=== PATIENT | female | born 1970 | race Caucasian/White ===

== ENCOUNTER 2018-05-27 11:59 | Inpatient (IN) ==
[2018-05-27 13:02] LABS: Basophils % 0.7 % (0.0-0.8); Eosinophils # 0.1 10*3/uL (0.0-0.87); Eosinophils % 1.1 % (0.00-10.9); Hematocrit 22.2 VOL% (35.7-47.0); Immature Granulocytes % 0.5 %; Immature Granulocytes Absolute 0.02 #; Lymphocytes # 1.2 10*3/uL (1.4-4.0); Lymphocytes % 28.1 % (21.3-54.2); Mean Corpuscular HGB Conc 27.9 GM/DL (32-36); Mean Corpuscular Hemoglobin 22 PG (27-34); Mean Corpuscular Volume 79.3 FL (87-102); Mean Platelet Volume 9.6 FL (9.6-12.0); Monocytes # 0.4 10*3/uL (0.11-0.8); Monocytes % 8.4 % (1.7-12.7); NRBC # 0.02 10*3/uL; Neutrophils # 2.7 10*3/uL (1.4-7.4); Neutrophils % 61.2 % (38.7-73.9); Platelet Count 517 T/CUMM (130-400); Red Cell Distribution Width 20.1 % (9.3-17.3); White Blood Count 4.4 T/CUMM (4-12)
[2018-05-27 13:11] LABS: Hemoglobin 6.2 GM/DL (12.0-16.0)
[2018-05-27] MEDS ORDERED: MORPHINE 4 MG/1 ML VIAL ONE ×2 (13:14→15:36)
[2018-05-27] MEDS ORDERED: ONDANSETRON 4 MG/2 ML VIAL ONE ×2 (13:15→15:36)
[2018-05-27] MEDS ORDERED: ONDANSETRON 4 MG/2 ML VIAL IM STA (13:18)
[2018-05-27] MEDS ORDERED: MORPHINE 4 MG/1 ML VIAL IV STA ×2 (13:18→15:33)
[2018-05-27] MEDS ORDERED: PROMETHAZINE INJ 12.5 MG in SODIUM CHLORIDE 0.9% 50 ML IV STA (13:18)
[2018-05-27] MEDS ORDERED: SODIUM CHLORIDE 0.9% 1,000 ML IV STA ×2 (13:19→14:49)
[2018-05-27] MEDS ORDERED: ONDANSETRON 4 MG/2 ML VIAL IV STA ×2 (13:21→15:35)
[2018-05-27 13:24] LABS: Albumin 4.2 G/DL (3.4-5.0); Bilirubin,Total 0.7 MG/DL (0.2-1.0); Calcium 8.4 MG/DL (8.5-10.1); Osmolality,Calculated 280.3 MOS/KG (273-304); Total Protein 7.6 G/DL (6.4-8.3)
[2018-05-27] MEDS ORDERED: PROMETHAZINE 25 MG/1 ML VIAL ONE (13:24)
[2018-05-27 14:14] LABS: Barbiturates Screen,Urine Negative (Negative); Benzodiazepines Screen,Urine Negative (Negative); Cannabinoid Screen,Urine Negative (Negative); Opiate Screen,Urine Positive (Negative); Phencyclidine Screen,Urine Negative (Negative)
[2018-05-27] MEDS ORDERED: ONDANSETRON 4 MG/2 ML VIAL IV ONE (14:49)
[2018-05-27 14:50] LABS: Apearance,Urine CLEAR (Clear); Bilirubin,Urine Negative (Negative); Blood, Urine Negative (Negative); Glucose,Urine (UA) Negative (Negative); Hyaline Casts,Urine 3 /LPF (0-3); Ketones,Urine 20 mg/dL (Negative); Mucus,Urine Occasional /LPF (Occasional); Nitrite,Urine Negative (Negative); Protein,Urine Negative; Urine Color Yellow (Yellow); Urine Specific Gravity 1.025 (1.001-1.035); Urine Urobilinogen < 2.0 EU/DL (0.2-1.0); WBC,Urine 1 /HPF (0-6)
[2018-05-27] MEDS ORDERED: SODIUM CHLORIDE 0.9% 1,000 ML IV PRN (15:42)
[2018-05-27] MEDS ORDERED: PROMETHAZINE 25 MG SUPP RECTAL PRN (15:47)
[2018-05-27 16:12] LABS: % Iron Saturation 2.9 % (18-50); Ferritin 6.3 ng/ml (8-252)
[2018-05-27] MEDS: SODIUM CHLORIDE 0.9% 1,000 ML IV SCH (17:15)
[2018-05-27 18:14] LABS: HIV Antigen/Antibody Result Nonreactive (Nonreactive); Hepatitis A Ab IgM Result Negative (Negative); Hepatitis B Core IgM Quant < 0.05 Index; Hepatitis B Core IgM Result Negative (Negative); Hepatitis B Surface Ag Quant 0.28 Index; Hepatitis B Surface Ag Result Negative (Negative); Hepatitis C Virus Ab Quant 0.12 Index; Hepatitis C Virus Ab Result Negative (Negative)
[2018-05-27] MEDS: PANTOPRAZOLE 40 MG VIAL IV SCH (19:53)
[2018-05-27] MEDS: ONDANSETRON 4 MG/2 ML VIAL IV PRN (21:26)
[2018-05-27] MEDS: MORPHINE 4 MG/1 ML VIAL IV PRN (21:26)
[2018-05-27] MEDS: traZODone 50 MG TABLET PO PRN (21:57)
[2018-05-28] MEDS: MORPHINE 4 MG/1 ML VIAL IV PRN ×3 (03:36→20:18)
[2018-05-28] MEDS: ONDANSETRON 4 MG/2 ML VIAL IV PRN ×2 (03:37→09:22)
[2018-05-28 06:01] LABS: Basophils % 0.9 % (0.0-0.8); Eosinophils # 0.1 10*3/uL (0.0-0.87); Eosinophils % 3.2 % (0.00-10.9); Hematocrit 24.9 VOL% (35.7-47.0); Immature Granulocytes % 0.3 %; Immature Granulocytes Absolute 0.01 #; Lymphocytes # 1.4 10*3/uL (1.4-4.0); Lymphocytes % 41.4 % (21.3-54.2); Mean Corpuscular HGB Conc 30.5 GM/DL (32-36); Mean Corpuscular Hemoglobin 25 PG (27-34); Mean Platelet Volume 9.8 FL (9.6-12.0); Monocytes # 0.4 10*3/uL (0.11-0.8); Monocytes % 12.1 % (1.7-12.7); NRBC # 0.02 10*3/uL; Neutrophils # 1.5 10*3/uL (1.4-7.4); Neutrophils % 42.1 % (38.7-73.9); Platelet Count 318 T/CUMM (130-400); Red Cell Distribution Width 19.1 % (9.3-17.3); White Blood Count 3.5 T/CUMM (4-12)
[2018-05-28 06:12] LABS: Hemoglobin 7.6 GM/DL (12.0-16.0)
[2018-05-28 06:39] LABS: Albumin 3.3 G/DL (3.4-5.0); Bilirubin,Total 0.7 MG/DL (0.2-1.0); Calcium 8.1 MG/DL (8.5-10.1); Osmolality,Calculated 282.8 MOS/KG (273-304); Potassium 3.9 MMOL/L (3.5-5.1); Risk Ratio 2.94; Thyroid Stimulating Hormone 1.28 uIU/ml (0.358-3.74); VLDL CHOLESTEROL 21.8 MG/DL
[2018-05-28] MEDS: PANTOPRAZOLE 40 MG VIAL IV SCH (09:19)
[2018-05-28] MEDS ORDERED: SODIUM CHLORIDE 0.9% 1,000 ML IV PRN ×2 (10:59→18:36)
[2018-05-28 13:16] LABS: Basophils % 1.2 % (0.0-0.8); Eosinophils # 0.1 10*3/uL (0.0-0.87); Eosinophils % 3.4 % (0.00-10.9); Hematocrit 25.7 VOL% (35.7-47.0); Hemoglobin 7.5 GM/DL (12.0-16.0); Immature Granulocytes % 0.3 %; Immature Granulocytes Absolute 0.01 #; Lymphocytes # 1.3 10*3/uL (1.4-4.0); Lymphocytes % 40.7 % (21.3-54.2); Mean Corpuscular HGB Conc 29.2 GM/DL (32-36); Mean Corpuscular Hemoglobin 25 PG (27-34); Mean Platelet Volume 9.5 FL (9.6-12.0); Monocytes # 0.4 10*3/uL (0.11-0.8); Monocytes % 11.3 % (1.7-12.7); Neutrophils # 1.4 10*3/uL (1.4-7.4); Neutrophils % 43.1 % (38.7-73.9); Platelet Count 302 T/CUMM (130-400); Red Blood Count 2.99 MC/CUMM (3.8-5.5); Red Cell Distribution Width 18.7 % (9.3-17.3); White Blood Count 3.3 T/CUMM (4-12)
[2018-05-28] MEDS: PROMETHAZINE 25 MG/1 ML VIAL IM PRN ×2 (14:38→21:41)
[2018-05-28] MEDS ORDERED: PROPOFOL 200 MG/20 ML VIAL IV ONE (15:20)
[2018-05-28] MEDS ORDERED: LIDOCAINE 2% 5 ML VIAL ONE (15:20)
[2018-05-28] MEDS ORDERED: ONDANSETRON 4 MG/2 ML VIAL ONE (15:20)
[2018-05-28] MEDS: PARoxetine 10 MG TABLET PO SCH ×2 (18:04→20:20)
[2018-05-28] MEDS: HydrOXYzine PAMOATE 25 MG CAPSULE PO SCH ×2 (18:04→20:20)
[2018-05-28] MEDS ORDERED: ACETAMINOPHEN 325 MG TABLET PO PRN (18:25)
[2018-05-28] MEDS: SODIUM CHLORIDE 0.9% 1,000 ML IV SCH (23:30)
[2018-05-29 01:03] LABS: Hematocrit 31.5 VOL% (35.7-47.0)
[2018-05-29 01:05] LABS: Hemoglobin 10.1 GM/DL (12.0-16.0)
[2018-05-29 06:12] LABS: Basophils # 0.1 10*3/uL (0.0-0.2); Basophils % 1.4 % (0.0-0.8); Eosinophils # 0.2 10*3/uL (0.0-0.87); Hematocrit 33.8 VOL% (35.7-47.0); Hemoglobin 10.3 GM/DL (12.0-16.0); Immature Granulocytes % 0.3 %; Immature Granulocytes Absolute 0.01 #; Lymphocytes % 28.3 % (21.3-54.2); Mean Corpuscular HGB Conc 30.5 GM/DL (32-36); Mean Corpuscular Hemoglobin 26 PG (27-34); Mean Platelet Volume 9.9 FL (9.6-12.0); Monocytes # 0.4 10*3/uL (0.11-0.8); Monocytes % 11.1 % (1.7-12.7); Neutrophils % 53.9 % (38.7-73.9); Platelet Count 267 T/CUMM (130-400); Red Blood Count 3.93 MC/CUMM (3.8-5.5); Red Cell Distribution Width 17.3 % (9.3-17.3); White Blood Count 3.6 T/CUMM (4-12)
[2018-05-29 06:40] LABS: Calcium 8.2 MG/DL (8.5-10.1); Osmolality,Calculated 286.6 MOS/KG (273-304); Potassium 3.9 MMOL/L (3.5-5.1)
[2018-05-29 06:53] LABS: Bilirubin,Total 0.6 MG/DL (0.2-1.0); Calcium 8.4 MG/DL (8.5-10.1); Osmolality,Calculated 286.6 MOS/KG (273-304); Potassium 3.9 MMOL/L (3.5-5.1); Total Protein 6.1 G/DL (6.4-8.3)
[2018-05-29] MEDS: PANTOPRAZOLE 40 MG VIAL IV SCH (08:10)
[2018-05-29] MEDS: HydrOXYzine PAMOATE 25 MG CAPSULE PO SCH ×3 (08:10→20:12)
[2018-05-29] MEDS: PARoxetine 10 MG TABLET PO SCH (08:10)
[2018-05-29] MEDS: PROMETHAZINE 25 MG/1 ML VIAL IM PRN (08:21)
[2018-05-29] MEDS: MORPHINE 4 MG/1 ML VIAL IV PRN ×2 (08:23→20:12)
[2018-05-29] MEDS: SODIUM CHLORIDE 0.9% 1,000 ML IV SCH ×2 (11:41→19:41)
[2018-05-29] MEDS: FERROUS SULFATE 325 MG TABLET PO SCH (11:43)
[2018-05-29] MEDS: traZODone 50 MG TABLET PO PRN (22:00)
[2018-05-30] MEDS: SODIUM CHLORIDE 0.9% 1,000 ML IV SCH ×2 (00:42→00:44)
[2018-05-30 06:07] LABS: Basophils # 0.1 10*3/uL (0.0-0.2); Basophils % 1.4 % (0.0-0.8); Eosinophils # 0.2 10*3/uL (0.0-0.87); Eosinophils % 6.6 % (0.00-10.9); Hematocrit 31.7 VOL% (35.7-47.0); Hemoglobin 9.7 GM/DL (12.0-16.0); Immature Granulocytes % 0.6 %; Immature Granulocytes Absolute 0.02 #; Lymphocytes # 1.5 10*3/uL (1.4-4.0); Mean Corpuscular HGB Conc 30.6 GM/DL (32-36); Mean Corpuscular Hemoglobin 26 PG (27-34); Mean Corpuscular Volume 83.9 FL (87-102); Mean Platelet Volume 9.6 FL (9.6-12.0); Monocytes # 0.5 10*3/uL (0.11-0.8); Monocytes % 12.9 % (1.7-12.7); Neutrophils # 1.3 10*3/uL (1.4-7.4); Neutrophils % 36.5 % (38.7-73.9); Platelet Count 210 T/CUMM (130-400); Red Blood Count 3.78 MC/CUMM (3.8-5.5); Red Cell Distribution Width 17.6 % (9.3-17.3); White Blood Count 3.5 T/CUMM (4-12)
[2018-05-30 06:30] LABS: Eosinophils 6 % (0-10); Hypochromasia 1+; Lymphocytes 37 % (20-55); Segmented Neutrophils 48 % (50-85); Total Cells Counted 100
[2018-05-30 06:31] LABS: Atypical Lymphocytes Few; Microcytosis 1+; Platelet Estimate Normal
[2018-05-30] MEDS: PARoxetine 10 MG TABLET PO SCH (08:42)
[2018-05-30] MEDS: PROMETHAZINE 25 MG/1 ML VIAL IM PRN (08:42)
[2018-05-30] MEDS: FERROUS SULFATE 325 MG TABLET PO SCH (08:42)
[2018-05-30] MEDS: PANTOPRAZOLE 40 MG VIAL IV SCH (08:43)
[2018-05-30] MEDS: HydrOXYzine PAMOATE 25 MG CAPSULE PO SCH (08:50)
[2018-05-30 11:52] VITALS: BP 127/77
== END 2018-05-30 13:25 | disposition home or self-care (01) | DRG 812 ==
LOC: N.ED 11:59 → N.5E 15:45
PROVIDERS: ADMIT Internal Medicine; ATTEND Internal Medicine

== ENCOUNTER 2018-06-09 05:49 | Observation (INO) ==
[2018-06-09] MEDS ORDERED: SODIUM CHLORIDE 0.9% 500 ML IV STA (06:31)
[2018-06-09] MEDS ORDERED: ONDANSETRON 4 MG/2 ML VIAL IV STA ×2 (06:31→08:41)
[2018-06-09 06:37] LABS: Basophils # 0.1 10*3/uL (0.0-0.2); Basophils % 1.5 % (0.0-0.8); Eosinophils # 0.3 10*3/uL (0.0-0.87); Eosinophils % 6.9 % (0.00-10.9); Hematocrit 32.5 VOL% (35.7-47.0); Hemoglobin 9.8 GM/DL (12.0-16.0); Immature Granulocytes % 0.6 %; Immature Granulocytes Absolute 0.03 #; Lymphocytes # 1.6 10*3/uL (1.4-4.0); Lymphocytes % 34.3 % (21.3-54.2); Mean Corpuscular HGB Conc 30.2 GM/DL (32-36); Mean Corpuscular Hemoglobin 27 PG (27-34); Mean Corpuscular Volume 88.8 FL (87-102); Mean Platelet Volume 9.6 FL (9.6-12.0); Monocytes # 0.5 10*3/uL (0.11-0.8); Monocytes % 9.9 % (1.7-12.7); Neutrophils # 2.2 10*3/uL (1.4-7.4); Neutrophils % 46.8 % (38.7-73.9); Platelet Count 455 T/CUMM (130-400); Red Blood Count 3.66 MC/CUMM (3.8-5.5); Red Cell Distribution Width 21.3 % (9.3-17.3); White Blood Count 4.7 T/CUMM (4-12)
[2018-06-09 07:04] LABS: Albumin 3.3 G/DL (3.4-5.0); Bilirubin,Total 0.8 MG/DL (0.2-1.0); Calcium 8.5 MG/DL (8.5-10.1); Osmolality,Calculated 282.8 MOS/KG (273-304); Potassium 3.8 MMOL/L (3.5-5.1); Total Protein 6.4 G/DL (6.4-8.3)
[2018-06-09 07:07] LABS: Apearance,Urine CLEAR (Clear); Bilirubin,Urine Negative (Negative); Blood, Urine Negative (Negative); Glucose,Urine (UA) Negative (Negative); Hyaline Casts,Urine 1 /LPF (0-3); Ketones,Urine Negative (Negative); Mucus,Urine Occasional /LPF (Occasional); Nitrite,Urine Negative (Negative); Protein,Urine Negative; Squamous Epithelial Cell,Urine Occasional /HPF (0-10); Urine Color Yellow (Yellow); Urine Specific Gravity 1.012 (1.001-1.035); Urine Urobilinogen < 2.0 EU/DL (0.2-1.0); WBC,Urine 1 /HPF (0-6)
[2018-06-09] MEDS ORDERED: HYDROmorphone 2 MG/1 ML VIAL IV STA (08:15)
[2018-06-09] MEDS ORDERED: PANTOPRAZOLE 40 MG TABLET PO SCH (09:30)
[2018-06-09] MEDS: SODIUM CHLORIDE 0.9% 1,000 ML IV SCH (09:49)
[2018-06-09] MEDS: ACETAMINOPHEN 325 MG TABLET PO PRN ×2 (13:43→20:57)
[2018-06-09] MEDS: ONDANSETRON 4 MG/2 ML VIAL IV PRN ×2 (14:35→18:41)
[2018-06-09 18:18] LABS: Hematocrit 29.4 VOL% (35.7-47.0)
[2018-06-09] MEDS: DICYCLOMINE 20 MG TABLET PO PRN (18:46)
[2018-06-09] MEDS: PARoxetine 20 MG TABLET PO SCH (20:57)
[2018-06-09] MEDS: HydrOXYzine PAMOATE 25 MG CAPSULE PO PRN (21:01)
[2018-06-09] MEDS: PANTOPRAZOLE 40 MG VIAL IV SCH (22:03)
[2018-06-10] MEDS: SODIUM CHLORIDE 0.9% 1,000 ML IV SCH ×2 (00:30→14:09)
[2018-06-10] MEDS: ONDANSETRON 4 MG/2 ML VIAL IV PRN ×4 (01:13→21:04)
[2018-06-10] MEDS: DICYCLOMINE 20 MG TABLET PO PRN ×4 (01:50→21:29)
[2018-06-10 06:16] LABS: Basophils # 0.1 10*3/uL (0.0-0.2); Basophils % 1.6 % (0.0-0.8); Eosinophils # 0.3 10*3/uL (0.0-0.87); Hematocrit 29.8 VOL% (35.7-47.0); Hemoglobin 9.1 GM/DL (12.0-16.0); Immature Granulocytes % 0.5 %; Immature Granulocytes Absolute 0.02 #; Lymphocytes # 1.2 10*3/uL (1.4-4.0); Lymphocytes % 32.5 % (21.3-54.2); Mean Corpuscular HGB Conc 30.5 GM/DL (32-36); Mean Corpuscular Hemoglobin 27 PG (27-34); Mean Platelet Volume 9.5 FL (9.6-12.0); Monocytes # 0.4 10*3/uL (0.11-0.8); Monocytes % 10.1 % (1.7-12.7); Neutrophils # 1.8 10*3/uL (1.4-7.4); Neutrophils % 47.3 % (38.7-73.9); Platelet Count 422 T/CUMM (130-400); Red Blood Count 3.35 MC/CUMM (3.8-5.5); Red Cell Distribution Width 21.2 % (9.3-17.3); White Blood Count 3.8 T/CUMM (4-12)
[2018-06-10 06:48] LABS: Calcium 7.9 MG/DL (8.5-10.1); Osmolality,Calculated 285.6 MOS/KG (273-304); Potassium 4.2 MMOL/L (3.5-5.1)
[2018-06-10] MEDS: HydrOXYzine PAMOATE 25 MG CAPSULE PO PRN ×2 (08:17→21:27)
[2018-06-10] MEDS: PANTOPRAZOLE 40 MG VIAL IV SCH ×2 (08:19→21:02)
[2018-06-10] MEDS: ACETAMINOPHEN 325 MG TABLET PO PRN (09:25)
[2018-06-10] MEDS ORDERED: BISACODYL 5 MG TABLET PO ONE (14:30)
[2018-06-10] MEDS ORDERED: POLYETHYLENE GLYCOL POWDER 255 GM BOTTLE PO ONE (14:30)
[2018-06-10] MEDS: PROMETHAZINE 25 MG/1 ML VIAL IM PRN (15:11)
[2018-06-10] MEDS: PARoxetine 20 MG TABLET PO SCH (21:28)
[2018-06-11] MEDS: SODIUM CHLORIDE 0.9% 1,000 ML IV SCH (03:10)
[2018-06-11] MEDS: PROMETHAZINE 25 MG/1 ML VIAL IM PRN ×2 (03:10→15:18)
[2018-06-11 06:41] LABS: Basophils # 0.1 10*3/uL (0.0-0.2); Basophils % 1.8 % (0.0-0.8); Eosinophils # 0.3 10*3/uL (0.0-0.87); Hematocrit 32.5 VOL% (35.7-47.0); Hemoglobin 9.9 GM/DL (12.0-16.0); Immature Granulocytes % 0.5 %; Immature Granulocytes Absolute 0.02 #; Lymphocytes # 1.5 10*3/uL (1.4-4.0); Lymphocytes % 33.4 % (21.3-54.2); Mean Corpuscular HGB Conc 30.5 GM/DL (32-36); Mean Corpuscular Hemoglobin 27 PG (27-34); Mean Corpuscular Volume 88.6 FL (87-102); Mean Platelet Volume 9.7 FL (9.6-12.0); Monocytes # 0.4 10*3/uL (0.11-0.8); Monocytes % 8.2 % (1.7-12.7); Neutrophils # 2.2 10*3/uL (1.4-7.4); Neutrophils % 49.1 % (38.7-73.9); Platelet Count 516 T/CUMM (130-400); Red Blood Count 3.67 MC/CUMM (3.8-5.5); Red Cell Distribution Width 21.5 % (9.3-17.3); White Blood Count 4.4 T/CUMM (4-12)
[2018-06-11 07:06] LABS: Calcium 7.9 MG/DL (8.5-10.1); Osmolality,Calculated 284.6 MOS/KG (273-304); Potassium 3.9 MMOL/L (3.5-5.1)
[2018-06-11] MEDS: ONDANSETRON 4 MG/2 ML VIAL IV PRN ×2 (07:56→11:55)
[2018-06-11] MEDS: PANTOPRAZOLE 40 MG VIAL IV SCH (08:00)
[2018-06-11] MEDS ORDERED: ONDANSETRON 4 MG/2 ML VIAL IV ONE (12:12)
[2018-06-11] MEDS ORDERED: LIDOCAINE 1% 5 ML VIAL ONE (12:55)
[2018-06-11] MEDS ORDERED: PROPOFOL 200 MG/20 ML VIAL IV ONE (12:55)
[2018-06-11] MEDS: DICYCLOMINE 20 MG TABLET PO PRN (14:08)
[2018-06-11 14:14] VITALS: BP 109/87
[2018-06-11] MEDS: HydrOXYzine PAMOATE 25 MG CAPSULE PO PRN (15:21)
== END 2018-06-11 16:16 | disposition home or self-care (01) ==
LOC: N.EDINP 05:49 → N.ED 05:49 → N.2E 11:51
PROVIDERS: ADMIT Internal Medicine; ATTEND Internal Medicine

== ENCOUNTER 2018-06-19 19:09 | Inpatient (IN) ==
[2018-06-19 20:45] LABS: Basophils % 0.5 % (0.0-0.8); Eosinophils # 0.1 10*3/uL (0.0-0.87); Eosinophils % 1.5 % (0.00-10.9); Hematocrit 25.5 VOL% (35.7-47.0); Hemoglobin 7.6 GM/DL (12.0-16.0); Immature Granulocytes % 0.5 %; Immature Granulocytes Absolute 0.03 #; Lymphocytes # 1.2 10*3/uL (1.4-4.0); Lymphocytes % 19.9 % (21.3-54.2); Mean Corpuscular HGB Conc 29.8 GM/DL (32-36); Mean Corpuscular Hemoglobin 27 PG (27-34); Mean Corpuscular Volume 89.8 FL (87-102); Mean Platelet Volume 9.9 FL (9.6-12.0); Monocytes # 0.4 10*3/uL (0.11-0.8); Monocytes % 5.8 % (1.7-12.7); Neutrophils # 4.4 10*3/uL (1.4-7.4); Neutrophils % 71.8 % (38.7-73.9); Platelet Count 322 T/CUMM (130-400); Red Blood Count 2.84 MC/CUMM (3.8-5.5); Red Cell Distribution Width 20.9 % (9.3-17.3); White Blood Count 6.2 T/CUMM (4-12)
[2018-06-19] MEDS ORDERED: SODIUM CHLORIDE 0.9% 1,000 ML IV STA (20:47)
[2018-06-19 21:06] LABS: PT Patient Result 10.6 SECS; Partial Thromboplastin Time 25.2 SECS (0-40)
[2018-06-19 21:09] LABS: Albumin 3.3 G/DL (3.4-5.0); Bilirubin,Total 0.6 MG/DL (0.2-1.0); Calcium 7.7 MG/DL (8.5-10.1); Osmolality,Calculated 289.1 MOS/KG (273-304); Potassium 4.9 MMOL/L (3.5-5.1); Total Protein 5.7 G/DL (6.4-8.3)
[2018-06-19 21:42] LABS: Apearance,Urine CLEAR (Clear); Bilirubin,Urine Negative (Negative); Blood, Urine Negative (Negative); Glucose,Urine (UA) Negative (Negative); Ketones,Urine 5 mg/dL (Negative); Mucus,Urine Occasional /LPF (Occasional); Nitrite,Urine Negative (Negative); Protein,Urine Negative; RBC,Urine <1 /HPF (0-4); Squamous Epithelial Cell,Urine Occasional /HPF (0-10); Urine Color Yellow (Yellow); Urine Specific Gravity 1.023 (1.001-1.035); Urine Urobilinogen < 2.0 EU/DL (0.2-1.0); WBC,Urine <1 /HPF (0-6)
[2018-06-19] MEDS ORDERED: ONDANSETRON 4 MG/2 ML VIAL IV STA (22:09)
[2018-06-19] MEDS ORDERED: SODIUM CHLORIDE 0.9% 1,000 ML IV PRN (22:16)
[2018-06-20] MEDS ORDERED: SODIUM CHLORIDE 0.9% 1,000 ML IV PRN ×3 (01:07→12:21)
[2018-06-20] MEDS: SODIUM CHLORIDE 0.9% 1,000 ML IV SCH ×2 (03:00→10:54)
[2018-06-20] MEDS: metroNIDAZOLE INJ 500 MG in PREMIX 1 EACH IV SCH ×4 (03:00→20:11)
[2018-06-20] MEDS: MORPHINE 4 MG/1 ML VIAL IV PRN ×4 (03:02→17:06)
[2018-06-20] MEDS: ONDANSETRON 4 MG/2 ML VIAL IV PRN ×2 (03:03→08:29)
[2018-06-20] MEDS: PROMETHAZINE 25 MG/1 ML VIAL IM PRN ×3 (04:11→17:37)
[2018-06-20] MEDS: CIPROFLOXACIN INJ 400 MG in PREMIX 1 EACH IV SCH ×2 (04:49→16:58)
[2018-06-20] MEDS ORDERED: HYDROmorphone 2 MG/1 ML VIAL IV ONE (05:00)
[2018-06-20 07:38] LABS: Calcium 7.7 MG/DL (8.5-10.1); Potassium 4.2 MMOL/L (3.5-5.1)
[2018-06-20] MEDS: PANTOPRAZOLE 40 MG VIAL IV SCH ×2 (08:24→20:10)
[2018-06-20] MEDS: FERROUS SULFATE 325 MG TABLET PO SCH (09:26)
[2018-06-20] MEDS: CYANOCOBALAMIN 100 MCG TABLET PO SCH (09:26)
[2018-06-20] MEDS: MULTIVITAMIN (CENTRUM) TABLET PO SCH (09:26)
[2018-06-20] MEDS: ASCORBIC ACID 500 MG TABLET PO SCH (09:27)
[2018-06-20] MEDS: PARoxetine 20 MG TABLET PO SCH (20:11)
[2018-06-21] MEDS: SODIUM CHLORIDE 0.9% 1,000 ML IV SCH ×3 (00:15→18:34)
[2018-06-21] MEDS: MORPHINE 4 MG/1 ML VIAL IV PRN ×5 (03:54→20:04)
[2018-06-21] MEDS: metroNIDAZOLE INJ 500 MG in PREMIX 1 EACH IV SCH ×4 (03:54→20:03)
[2018-06-21] MEDS: CIPROFLOXACIN INJ 400 MG in PREMIX 1 EACH IV SCH ×2 (04:03→18:34)
[2018-06-21] MEDS: ONDANSETRON 4 MG/2 ML VIAL IV PRN ×3 (06:11→20:06)
[2018-06-21] MEDS: PROMETHAZINE 25 MG/1 ML VIAL IM PRN ×2 (07:52→17:32)
[2018-06-21] MEDS: FERROUS SULFATE 325 MG TABLET PO SCH (09:27)
[2018-06-21] MEDS: MULTIVITAMIN (CENTRUM) TABLET PO SCH (09:27)
[2018-06-21] MEDS: ASCORBIC ACID 500 MG TABLET PO SCH (09:28)
[2018-06-21] MEDS: CYANOCOBALAMIN 100 MCG TABLET PO SCH (09:30)
[2018-06-21] MEDS: PANTOPRAZOLE 40 MG VIAL IV SCH ×2 (09:31→20:07)
[2018-06-21] MEDS ORDERED: MAGNESIUM CITRATE 300 ML BOTTLE PO ONE (18:00)
[2018-06-21] MEDS: PARoxetine 20 MG TABLET PO SCH (20:06)
[2018-06-21] MEDS: traZODone 50 MG TABLET PO PRN (21:54)
[2018-06-21] MEDS: HydrOXYzine PAMOATE 25 MG CAPSULE PO SCH (21:54)
[2018-06-22] MEDS: metroNIDAZOLE INJ 500 MG in PREMIX 1 EACH IV SCH ×3 (04:29→16:04)
[2018-06-22] MEDS: CIPROFLOXACIN INJ 400 MG in PREMIX 1 EACH IV SCH ×2 (05:44→18:13)
[2018-06-22] MEDS: SODIUM CHLORIDE 0.9% 1,000 ML IV SCH ×2 (05:45→16:01)
[2018-06-22] MEDS: ONDANSETRON 4 MG/2 ML VIAL IV PRN ×2 (06:14→18:56)
[2018-06-22] MEDS: MORPHINE 4 MG/1 ML VIAL IV PRN ×3 (06:15→18:04)
[2018-06-22] MEDS: PROMETHAZINE 25 MG/1 ML VIAL IM PRN (09:12)
[2018-06-22] MEDS: CYANOCOBALAMIN 100 MCG TABLET PO SCH (09:45)
[2018-06-22] MEDS: ASCORBIC ACID 500 MG TABLET PO SCH (09:46)
[2018-06-22] MEDS: MULTIVITAMIN (CENTRUM) TABLET PO SCH (09:46)
[2018-06-22] MEDS: FERROUS SULFATE 325 MG TABLET PO SCH (09:47)
[2018-06-22] MEDS: HydrOXYzine PAMOATE 25 MG CAPSULE PO SCH ×4 (09:47→20:20)
[2018-06-22] MEDS: PANTOPRAZOLE 40 MG VIAL IV SCH ×2 (09:48→20:20)
[2018-06-22 11:55] LABS: Hematocrit 25.8 VOL% (35.7-47.0); Hemoglobin 8.4 GM/DL (12.0-16.0)
[2018-06-22 19:46] LABS: Hematocrit 26.5 VOL% (35.7-47.0); Hemoglobin 8.6 GM/DL (12.0-16.0)
[2018-06-22] MEDS: traZODone 50 MG TABLET PO PRN (20:20)
[2018-06-22] MEDS: PARoxetine 20 MG TABLET PO SCH (20:20)
[2018-06-23] MEDS: SODIUM CHLORIDE 0.9% 1,000 ML IV SCH ×4 (00:31→17:07)
[2018-06-23 04:08] LABS: Calcium 7.5 MG/DL (8.5-10.1); Potassium 3.8 MMOL/L (3.5-5.1)
[2018-06-23] MEDS: CYANOCOBALAMIN 100 MCG TABLET PO SCH (08:55)
[2018-06-23] MEDS: MULTIVITAMIN (CENTRUM) TABLET PO SCH (08:55)
[2018-06-23] MEDS: FERROUS SULFATE 325 MG TABLET PO SCH (08:55)
[2018-06-23] MEDS: ASCORBIC ACID 500 MG TABLET PO SCH (08:56)
[2018-06-23] MEDS: PANTOPRAZOLE 40 MG VIAL IV SCH ×2 (08:56→22:28)
[2018-06-23] MEDS: HydrOXYzine PAMOATE 25 MG CAPSULE PO SCH ×4 (08:56→21:04)
[2018-06-23] MEDS: ONDANSETRON 4 MG/2 ML VIAL IV PRN ×2 (09:01→12:43)
[2018-06-23] MEDS: MORPHINE 4 MG/1 ML VIAL IV PRN ×3 (10:42→22:34)
[2018-06-23] MEDS: PROMETHAZINE 25 MG/1 ML VIAL IM PRN (18:07)
[2018-06-23] MEDS: traZODone 50 MG TABLET PO PRN (21:04)
[2018-06-23] MEDS: PARoxetine 20 MG TABLET PO SCH (21:04)
[2018-06-24] MEDS: ONDANSETRON 4 MG/2 ML VIAL IV PRN ×2 (04:45→08:45)
[2018-06-24] MEDS: MORPHINE 4 MG/1 ML VIAL IV PRN ×3 (04:47→12:19)
[2018-06-24 04:50] LABS: Hemoglobin 8.5 GM/DL (12.0-16.0)
[2018-06-24] MEDS: PANTOPRAZOLE 40 MG VIAL IV SCH (08:49)
[2018-06-24] MEDS: HydrOXYzine PAMOATE 25 MG CAPSULE PO SCH ×2 (08:50→12:18)
[2018-06-24] MEDS: CYANOCOBALAMIN 100 MCG TABLET PO SCH (08:50)
[2018-06-24] MEDS: FERROUS SULFATE 325 MG TABLET PO SCH (08:51)
[2018-06-24] MEDS: MULTIVITAMIN (CENTRUM) TABLET PO SCH (08:51)
[2018-06-24] MEDS: ASCORBIC ACID 500 MG TABLET PO SCH (08:53)
[2018-06-24] MEDS: SODIUM CHLORIDE 0.9% 1,000 ML IV SCH ×2 (10:35→12:25)
[2018-06-24] MEDS: PROMETHAZINE 25 MG/1 ML VIAL IM PRN (12:21)
[2018-06-24] MEDS ORDERED: DICYCLOMINE 20 MG TABLET PO SCH (13:00)
[2018-06-24 19:21] VITALS: BP 138/84
[2018-06-24] MEDS ORDERED: PANTOPRAZOLE 40 MG TABLET PO SCH (21:00)
== END 2018-06-24 16:15 | disposition home or self-care (01) | DRG 378 ==
LOC: N.ED 19:09 → SUATTDRO 06-20 01:00 → N.EDINP 06-20 01:00 → N.CC 06-20 02:16 → N.2E 06-23 16:39
PROVIDERS: ADMIT Internal Medicine; ATTEND Hospitalist

== ENCOUNTER 2018-11-20 07:23 | Observation (INO) ==
[2018-11-20] MEDS ORDERED: SODIUM CHLORIDE 0.9% 500 ML IV STA (07:42)
[2018-11-20 08:04] LABS: Basophils % 0.6 % (0.0-0.8); Eosinophils # 0.1 10*3/uL (0.0-0.87); Hematocrit 33.3 VOL% (35.7-47.0); Hemoglobin 9.8 GM/DL (12.0-16.0); Immature Granulocytes % 0.3 %; Immature Granulocytes Absolute 0.01 #; Lymphocytes # 1.2 10*3/uL (1.4-4.0); Lymphocytes % 34.3 % (21.3-54.2); Mean Corpuscular HGB Conc 29.4 GM/DL (32-36); Mean Corpuscular Hemoglobin 24 PG (27-34); Mean Corpuscular Volume 82.4 FL (87-102); Mean Platelet Volume 10.1 FL (9.6-12.0); Monocytes # 0.3 10*3/uL (0.11-0.8); Monocytes % 7.8 % (1.7-12.7); Platelet Count 259 T/CUMM (130-400); Red Blood Count 4.04 MC/CUMM (3.8-5.5); Red Cell Distribution Width 17.6 % (9.3-17.3); White Blood Count 3.6 T/CUMM (4-12)
[2018-11-20 08:18] LABS: INR 0.9; PT Patient Result 10.3 SECS
[2018-11-20 08:24] LABS: Alanine Aminotransferase 26 U/L (13-56); Albumin 3.3 G/DL (3.4-5.0); Alkaline Phosphatase 75 U/L (45-117); Aspartate Amino Transferase 32 U/L (0-37); Bilirubin,Total < 0.39 MG/DL (0.2-1.0); Blood Urea Nitrogen 16 MG/DL (7-18); Calcium 8.3 MG/DL (8.5-10.1); Glucose 88 MG/DL (74-106); Osmolality,Calculated 280.3 MOS/KG (273-304); Potassium 3.8 MMOL/L (3.5-5.1); Sodium 141 MMOL/L (136-145); Total Protein 6.6 G/DL (6.4-8.3)
[2018-11-20 08:30] LABS: Apearance,Urine CLEAR (Clear); Bilirubin,Urine Negative (Negative); Blood, Urine Negative (Negative); Glucose,Urine (UA) Negative (Negative); Ketones,Urine Negative (Negative); Mucus,Urine Moderate /LPF (Occasional); Nitrite,Urine Negative (Negative); Protein,Urine Negative; RBC,Urine 1 /HPF (0-4); Urine Color Yellow (Yellow); Urine Specific Gravity 1.026 (1.001-1.035); WBC,Urine 2 /HPF (0-6)
[2018-11-20 08:31] LABS: Barbiturates Screen,Urine Negative (Negative); Benzodiazepines Screen,Urine Negative (Negative); Cannabinoid Screen,Urine Negative (Negative); Opiate Screen,Urine Negative (Negative); Phencyclidine Screen,Urine Negative (Negative)
[2018-11-20] MEDS ORDERED: ONDANSETRON 4 MG/2 ML VIAL ONE (09:18)
[2018-11-20] MEDS ORDERED: ONDANSETRON 4 MG/2 ML VIAL IV STA (09:18)
[2018-11-20] MEDS ORDERED: ACETAMINOPHEN 325 MG TABLET PO PRN (11:10)
[2018-11-20 11:37] LABS: Risk Ratio 3.17; Thyroid Stimulating Hormone 0.921 uIU/ml (0.358-3.74); VLDL CHOLESTEROL 19.4 MG/DL
[2018-11-20] MEDS ORDERED: INFLUENZA VIRUS VACCINE 0.5 ML SYRINGE IM ONE (14:16)
[2018-11-20] MEDS: DICYCLOMINE 20 MG TABLET PO SCH ×2 (15:54→20:37)
[2018-11-20] MEDS: PROMETHAZINE 25 MG TABLET PO PRN ×2 (15:56→23:14)
[2018-11-20] MEDS: HydrOXYzine PAMOATE 25 MG CAPSULE PO SCH ×3 (15:56→20:37)
[2018-11-20] MEDS ORDERED: IRON SUCROSE 200 MG in SODIUM CHLORIDE 0.9% 100 ML IV ONE (16:00)
[2018-11-20] MEDS: SODIUM CHLORIDE 0.9% 1,000 ML IV SCH (16:06)
[2018-11-20 16:22] LABS: Hemoglobin 8.6 GM/DL (12.0-16.0)
[2018-11-20 16:49] LABS: % Iron Saturation 6.6 % (18-50); Ferritin 4.3 ng/ml (8-252)
[2018-11-20] MEDS: ZINC GLUCONATE 50 MG TABLET PO SCH (17:17)
[2018-11-20] MEDS: traZODone 50 MG TABLET PO SCH (20:37)
[2018-11-20] MEDS: PANTOPRAZOLE 40 MG VIAL IV SCH (20:40)
[2018-11-20] MEDS: ONDANSETRON 4 MG/2 ML VIAL IV PRN (20:43)
[2018-11-20 21:45] LABS: Hematocrit 28.3 VOL% (35.7-47.0); Hemoglobin 8.4 GM/DL (12.0-16.0)
[2018-11-20] MEDS: PARoxetine 10 MG TABLET PO SCH (23:14)
[2018-11-21 03:06] LABS: Basophils % 1.2 % (0.0-0.8); Eosinophils # 0.2 10*3/uL (0.0-0.87); Hematocrit 29.4 VOL% (35.7-47.0); Hemoglobin 8.5 GM/DL (12.0-16.0); Immature Granulocytes % 0.3 %; Immature Granulocytes Absolute 0.01 #; Lymphocytes # 0.9 10*3/uL (1.4-4.0); Lymphocytes % 26.2 % (21.3-54.2); Mean Corpuscular HGB Conc 28.9 GM/DL (32-36); Mean Corpuscular Hemoglobin 24 PG (27-34); Monocytes # 0.3 10*3/uL (0.11-0.8); Monocytes % 8.4 % (1.7-12.7); Neutrophils # 1.9 10*3/uL (1.4-7.4); Neutrophils % 57.9 % (38.7-73.9); Platelet Count 191 T/CUMM (130-400); Red Cell Distribution Width 17.3 % (9.3-17.3); White Blood Count 3.3 T/CUMM (4-12)
[2018-11-21 03:25] LABS: Albumin 2.8 G/DL (3.4-5.0); Bilirubin,Total 0.8 MG/DL (0.2-1.0); Calcium 7.7 MG/DL (8.5-10.1); Osmolality,Calculated 280.1 MOS/KG (273-304); Potassium 3.8 MMOL/L (3.5-5.1); Total Protein 5.5 G/DL (6.4-8.3)
[2018-11-21 07:20] LABS: Hematocrit 29.8 VOL% (35.7-47.0); Hemoglobin 8.8 GM/DL (12.0-16.0)
[2018-11-21] MEDS ORDERED: PANTOPRAZOLE 40 MG TABLET PO SCH (09:00)
[2018-11-21] MEDS ORDERED: FERROUS SULFATE 325 MG TABLET PO SCH (09:00)
[2018-11-21] MEDS: HydrOXYzine PAMOATE 25 MG CAPSULE PO SCH ×4 (09:30→22:26)
[2018-11-21] MEDS: CYANOCOBALAMIN 100 MCG TABLET PO SCH (09:30)
[2018-11-21] MEDS: ZINC GLUCONATE 50 MG TABLET PO SCH (09:31)
[2018-11-21] MEDS: PROMETHAZINE 25 MG TABLET PO PRN ×2 (09:31→17:58)
[2018-11-21] MEDS: PANTOPRAZOLE 40 MG VIAL IV SCH ×2 (09:31→22:26)
[2018-11-21] MEDS: DICYCLOMINE 20 MG TABLET PO SCH ×3 (09:31→22:27)
[2018-11-21] MEDS: ASCORBIC ACID 500 MG TABLET PO SCH (09:31)
[2018-11-21] MEDS: MULTIVITAMIN (CENTRUM) TABLET PO SCH (09:31)
[2018-11-21] MEDS ORDERED: MORPHINE 4 MG/1 ML VIAL IV ONE (10:52)
[2018-11-21] MEDS ORDERED: SODIUM CHLORIDE 0.9% 1,000 ML IV PRN (10:56)
[2018-11-21] MEDS: PARoxetine 10 MG TABLET PO SCH (11:08)
[2018-11-21] MEDS: SODIUM CHLORIDE 0.9% 1,000 ML IV SCH (11:12)
[2018-11-21] MEDS ORDERED: CYANOCOBALAMIN 1000 MCG/1 ML VIAL IM ONE (11:31)
[2018-11-21] MEDS: ONDANSETRON 4 MG/2 ML VIAL IV PRN (12:28)
[2018-11-21] MEDS ORDERED: ACETAMINOPHEN 325 MG TABLET PO PRN (14:17)
[2018-11-21 20:13] LABS: Hematocrit 33.4 VOL% (35.7-47.0); Hemoglobin 9.9 GM/DL (12.0-16.0)
[2018-11-21] MEDS: traZODone 50 MG TABLET PO SCH (22:26)
[2018-11-22] MEDS: PROMETHAZINE 25 MG TABLET PO PRN ×3 (04:59→18:40)
[2018-11-22 05:58] LABS: Eosinophils # 0.3 10*3/uL (0.0-0.87); Eosinophils % 6.9 % (0.00-10.9); Hematocrit 34.8 VOL% (35.7-47.0); Hemoglobin 10.3 GM/DL (12.0-16.0); Immature Granulocytes % 0.3 %; Immature Granulocytes Absolute 0.01 #; Lymphocytes # 1.6 10*3/uL (1.4-4.0); Lymphocytes % 39.6 % (21.3-54.2); Mean Corpuscular HGB Conc 29.6 GM/DL (32-36); Mean Corpuscular Hemoglobin 25 PG (27-34); Mean Corpuscular Volume 82.9 FL (87-102); Mean Platelet Volume 9.8 FL (9.6-12.0); Monocytes # 0.5 10*3/uL (0.11-0.8); Monocytes % 11.7 % (1.7-12.7); Neutrophils # 1.6 10*3/uL (1.4-7.4); Neutrophils % 40.5 % (38.7-73.9); Platelet Count 213 T/CUMM (130-400); Red Cell Distribution Width 17.3 % (9.3-17.3); White Blood Count 3.9 T/CUMM (4-12)
[2018-11-22] MEDS: ZINC GLUCONATE 50 MG TABLET PO SCH (08:42)
[2018-11-22] MEDS: PANTOPRAZOLE 40 MG VIAL IV SCH (08:42)
[2018-11-22] MEDS: ASCORBIC ACID 500 MG TABLET PO SCH (08:43)
[2018-11-22] MEDS: HydrOXYzine PAMOATE 25 MG CAPSULE PO SCH ×4 (08:43→20:51)
[2018-11-22] MEDS: CYANOCOBALAMIN 100 MCG TABLET PO SCH (08:43)
[2018-11-22] MEDS: ONDANSETRON 4 MG/2 ML VIAL IV PRN ×2 (08:43→16:32)
[2018-11-22] MEDS: DICYCLOMINE 20 MG TABLET PO SCH ×3 (08:43→20:52)
[2018-11-22] MEDS: MULTIVITAMIN (CENTRUM) TABLET PO SCH (08:43)
[2018-11-22] MEDS: PARoxetine 10 MG TABLET PO SCH (09:34)
[2018-11-22] MEDS: PANTOPRAZOLE 40 MG TABLET PO SCH (20:52)
[2018-11-22] MEDS: traZODone 50 MG TABLET PO SCH (20:52)
[2018-11-23] MEDS: ONDANSETRON 4 MG/2 ML VIAL IV PRN (01:25)
[2018-11-23 07:30] VITALS: BP 110/74
[2018-11-23] MEDS: PANTOPRAZOLE 40 MG TABLET PO SCH (08:44)
[2018-11-23] MEDS: ASCORBIC ACID 500 MG TABLET PO SCH (08:44)
[2018-11-23] MEDS: MULTIVITAMIN (CENTRUM) TABLET PO SCH (08:44)
[2018-11-23] MEDS: HydrOXYzine PAMOATE 25 MG CAPSULE PO SCH (08:44)
[2018-11-23] MEDS: PARoxetine 10 MG TABLET PO SCH (08:44)
[2018-11-23] MEDS: DICYCLOMINE 20 MG TABLET PO SCH (08:44)
[2018-11-23] MEDS: ZINC GLUCONATE 50 MG TABLET PO SCH (08:44)
[2018-11-23] MEDS: CYANOCOBALAMIN 100 MCG TABLET PO SCH (08:44)
== END 2018-11-23 09:34 | disposition home or self-care (01) ==
LOC: N.EDINP 07:23 → N.ED 07:23 → SUATTDRO 11:08 → N.EDINP 13:40 → N.2E 13:49
PROVIDERS: ADMIT Family Medicine; ATTEND Internal Medicine

== ENCOUNTER 2019-02-24 12:25 | Inpatient (IN) ==
[2019-02-24] MEDS ORDERED: SODIUM CHLORIDE 0.9% 1,000 ML IV STA (13:28)
[2019-02-24 13:36] LABS: Basophils % 0.7 % (0.0-0.8); Eosinophils # 0.1 10*3/uL (0.0-0.87); Hematocrit 21.4 VOL% (35.7-47.0); Immature Granulocytes % 0.6 %; Immature Granulocytes Absolute 0.03 #; Lymphocytes # 1.1 10*3/uL (1.4-4.0); Lymphocytes % 20.4 % (21.3-54.2); Mean Corpuscular HGB Conc 29.9 GM/DL (32-36); Mean Corpuscular Volume 95.5 FL (87-102); Mean Platelet Volume 10.6 FL (9.6-12.0); Monocytes % 3.7 % (1.7-12.7); NRBC # 0.04 10*3/uL; Neutrophils % 72.6 % (38.7-73.9); Platelet Count 271 T/CUMM (130-400); Red Blood Count 2.24 MC/CUMM (3.8-5.5); White Blood Count 5.4 T/CUMM (4-12)
[2019-02-24 13:42] LABS: PT Patient Result 10.8 SECS
[2019-02-24 13:46] LABS: Hemoglobin 6.4 GM/DL (12.0-16.0)
[2019-02-24] MEDS ORDERED: SODIUM CHLORIDE 0.9% 1,000 ML IV PRN ×2 (13:46→18:21)
[2019-02-24 14:11] LABS: Alanine Aminotransferase 14 U/L (13-56); Alkaline Phosphatase 49 U/L (45-117); Aspartate Amino Transferase 12 U/L (0-37); Bilirubin,Total < 0.39 MG/DL (0.2-1.0); Blood Urea Nitrogen 36 MG/DL (7-18); Calcium 7.6 MG/DL (8.5-10.1); Glucose 120 MG/DL (74-106); Total Protein 5.6 G/DL (6.4-8.3)
[2019-02-24] MEDS ORDERED: ONDANSETRON 4 MG/2 ML VIAL IV STA (14:40)
[2019-02-24] MEDS: PROMETHAZINE 25 MG TABLET PO PRN (20:10)
[2019-02-24] MEDS: HydrOXYzine PAMOATE 25 MG CAPSULE PO SCH (20:46)
[2019-02-24] MEDS: PARoxetine 20 MG TABLET PO SCH (20:47)
[2019-02-24] MEDS: DICYCLOMINE 20 MG TABLET PO SCH (20:48)
[2019-02-24] MEDS: SODIUM CHLORIDE 0.9% 1,000 ML IV SCH (20:58)
[2019-02-25 01:35] LABS: Hematocrit 23.8 VOL% (35.7-47.0); Hemoglobin 7.6 GM/DL (12.0-16.0)
[2019-02-25] MEDS ORDERED: SODIUM CHLORIDE 0.9% 1,000 ML IV PRN ×3 (01:38→16:07)
[2019-02-25] MEDS: PROMETHAZINE 25 MG TABLET PO PRN ×3 (02:47→20:45)
[2019-02-25] MEDS ORDERED: NOREPINEPHRINE 8 MG in SODIUM CHLORIDE 0.9% 242 ML IV PRN (06:02)
[2019-02-25] MEDS ORDERED: NOREPINEPHRINE 4 MG/4 ML VIAL IV ONE (06:05)
[2019-02-25] MEDS: SODIUM CHLORIDE 0.9% 1,000 ML IV SCH ×3 (06:46→21:46)
[2019-02-25 08:05] LABS: Hematocrit 31.3 VOL% (35.7-47.0); Hemoglobin 10.1 GM/DL (12.0-16.0)
[2019-02-25] MEDS: MULTIVITAMIN (CENTRUM) TABLET PO SCH (08:38)
[2019-02-25] MEDS: DICYCLOMINE 20 MG TABLET PO SCH ×3 (08:38→21:46)
[2019-02-25] MEDS: HydrOXYzine PAMOATE 25 MG CAPSULE PO SCH ×4 (08:38→21:46)
[2019-02-25] MEDS: CYANOCOBALAMIN 100 MCG TABLET PO SCH (08:38)
[2019-02-25] MEDS: ASCORBIC ACID 500 MG TABLET PO SCH (08:38)
[2019-02-25] MEDS: FAMOTIDINE 20 MG TABLET PO SCH (08:38)
[2019-02-25] MEDS: ZINC GLUCONATE 50 MG TABLET PO SCH (08:40)
[2019-02-25] MEDS: ONDANSETRON 4 MG/2 ML VIAL IV PRN ×2 (09:34→18:29)
[2019-02-25 14:06] LABS: Hematocrit 27.6 VOL% (35.7-47.0); Hemoglobin 8.8 GM/DL (12.0-16.0)
[2019-02-25 16:38] LABS: Hematocrit 26.4 VOL% (35.7-47.0); Hemoglobin 8.4 GM/DL (12.0-16.0)
[2019-02-25] MEDS: NOREPINEPHRINE 8 MG in SODIUM CHLORIDE 0.9% 242 ML IV PRN (19:18)
[2019-02-25] MEDS ORDERED: PHENTOLAMINE 5 MG VIAL INFILTRAT ONE (20:13)
[2019-02-25 20:41] LABS: Hematocrit 31.2 VOL% (35.7-47.0); Hemoglobin 9.9 GM/DL (12.0-16.0)
[2019-02-25] MEDS: PARoxetine 20 MG TABLET PO SCH (21:46)
[2019-02-26] MEDS: SODIUM CHLORIDE 0.9% 1,000 ML IV SCH ×3 (05:30→20:49)
[2019-02-26 05:46] LABS: Basophils % 0.9 % (0.0-0.8); Eosinophils # 0.3 10*3/uL (0.0-0.87); Eosinophils % 5.6 % (0.00-10.9); Hematocrit 31.1 VOL% (35.7-47.0); Hemoglobin 9.9 GM/DL (12.0-16.0); Immature Granulocytes % 0.4 %; Immature Granulocytes Absolute 0.02 #; Lymphocytes % 42.4 % (21.3-54.2); Mean Corpuscular HGB Conc 31.8 GM/DL (32-36); Mean Corpuscular Volume 94.5 FL (87-102); Mean Platelet Volume 9.9 FL (9.6-12.0); Monocytes % 6.5 % (1.7-12.7); NRBC # 0.03 10*3/uL; Neutrophils % 44.2 % (38.7-73.9); Platelet Count 178 T/CUMM (130-400); Red Blood Count 3.29 MC/CUMM (3.8-5.5); Red Cell Distribution Width 14.8 % (9.3-17.3); White Blood Count 4.6 T/CUMM (4-12)
[2019-02-26 05:54] LABS: Hematocrit 30.4 VOL% (35.7-47.0)
[2019-02-26 06:18] LABS: Calcium 7.4 MG/DL (8.5-10.1); Osmolality,Calculated 297.4 MOS/KG (273-304)
[2019-02-26 08:08] LABS: Hematocrit 31.3 VOL% (35.7-47.0)
[2019-02-26] MEDS: ONDANSETRON 4 MG/2 ML VIAL IV PRN (08:37)
[2019-02-26] MEDS: ASCORBIC ACID 500 MG TABLET PO SCH (08:38)
[2019-02-26] MEDS: HydrOXYzine PAMOATE 25 MG CAPSULE PO SCH ×4 (08:38→20:25)
[2019-02-26] MEDS: FAMOTIDINE 20 MG TABLET PO SCH (08:38)
[2019-02-26] MEDS: MULTIVITAMIN (CENTRUM) TABLET PO SCH (08:38)
[2019-02-26] MEDS: ZINC GLUCONATE 50 MG TABLET PO SCH (08:38)
[2019-02-26] MEDS: CYANOCOBALAMIN 100 MCG TABLET PO SCH (08:39)
[2019-02-26] MEDS: DICYCLOMINE 20 MG TABLET PO SCH ×3 (08:39→20:25)
[2019-02-26] MEDS: HYDROmorphone 2 MG/1 ML VIAL IV PRN ×2 (10:46→18:42)
[2019-02-26] MEDS: PROMETHAZINE 25 MG TABLET PO PRN ×2 (11:52→20:29)
[2019-02-26 15:02] LABS: Hematocrit 27.9 VOL% (35.7-47.0)
[2019-02-26] MEDS: PARoxetine 20 MG TABLET PO SCH (20:25)
[2019-02-26] MEDS: PANTOPRAZOLE 40 MG VIAL IV SCH (20:26)
[2019-02-27 01:15] LABS: Hematocrit 26.2 VOL% (35.7-47.0); Hemoglobin 8.5 GM/DL (12.0-16.0)
[2019-02-27] MEDS: SODIUM CHLORIDE 0.9% 1,000 ML IV SCH ×3 (01:35→23:30)
[2019-02-27] MEDS: HYDROmorphone 2 MG/1 ML VIAL IV PRN ×2 (03:22→10:21)
[2019-02-27] MEDS: ONDANSETRON 4 MG/2 ML VIAL IV PRN ×3 (03:22→14:48)
[2019-02-27 06:14] LABS: Basophils % 0.8 % (0.0-0.8); Eosinophils # 0.3 10*3/uL (0.0-0.87); Eosinophils % 7.4 % (0.00-10.9); Hematocrit 27.1 VOL% (35.7-47.0); Hemoglobin 8.6 GM/DL (12.0-16.0); Immature Granulocytes % 0.3 %; Immature Granulocytes Absolute 0.01 #; Lymphocytes # 1.6 10*3/uL (1.4-4.0); Lymphocytes % 41.3 % (21.3-54.2); Mean Corpuscular HGB Conc 31.7 GM/DL (32-36); Mean Corpuscular Volume 95.8 FL (87-102); Mean Platelet Volume 10.4 FL (9.6-12.0); Monocytes % 7.1 % (1.7-12.7); NRBC # 0.02 10*3/uL; Neutrophils % 43.1 % (38.7-73.9); Platelet Count 186 T/CUMM (130-400); Red Blood Count 2.83 MC/CUMM (3.8-5.5); Red Cell Distribution Width 15.1 % (9.3-17.3); White Blood Count 3.8 T/CUMM (4-12)
[2019-02-27 06:15] LABS: Calcium 7.7 MG/DL (8.5-10.1); Osmolality,Calculated 291.6 MOS/KG (273-304)
[2019-02-27] MEDS: ASCORBIC ACID 500 MG TABLET PO SCH (08:46)
[2019-02-27] MEDS: ZINC GLUCONATE 50 MG TABLET PO SCH (08:46)
[2019-02-27] MEDS: POLYETHYLENE GLYCOL POWDER 17 GM PACK PO SCH ×3 (08:46→20:22)
[2019-02-27] MEDS: MULTIVITAMIN (CENTRUM) TABLET PO SCH (08:46)
[2019-02-27] MEDS: PANTOPRAZOLE 40 MG VIAL IV SCH ×2 (08:46→20:20)
[2019-02-27] MEDS: CYANOCOBALAMIN 100 MCG TABLET PO SCH (08:46)
[2019-02-27] MEDS: HydrOXYzine PAMOATE 25 MG CAPSULE PO SCH ×4 (08:46→20:20)
[2019-02-27] MEDS: PROMETHAZINE 25 MG TABLET PO PRN ×2 (09:40→15:03)
[2019-02-27] MEDS: PARoxetine 20 MG TABLET PO SCH (20:20)
[2019-02-28 04:29] LABS: Basophils % 0.8 % (0.0-0.8); Eosinophils # 0.2 10*3/uL (0.0-0.87); Eosinophils % 7.7 % (0.00-10.9); Hematocrit 22.4 VOL% (35.7-47.0); Hemoglobin 6.9 GM/DL (12.0-16.0); Immature Granulocytes % 0.4 %; Immature Granulocytes Absolute 0.01 #; Lymphocytes # 1.4 10*3/uL (1.4-4.0); Lymphocytes % 52.1 % (21.3-54.2); Mean Corpuscular HGB Conc 30.8 GM/DL (32-36); Mean Corpuscular Volume 96.6 FL (87-102); Mean Platelet Volume 10.5 FL (9.6-12.0); Monocytes % 8.8 % (1.7-12.7); Neutrophils % 30.2 % (38.7-73.9); Platelet Count 147 T/CUMM (130-400); Red Blood Count 2.32 MC/CUMM (3.8-5.5); White Blood Count 2.6 T/CUMM (4-12)
[2019-02-28 04:49] LABS: Calcium 7.4 MG/DL (8.5-10.1); Osmolality,Calculated 290.4 MOS/KG (273-304)
[2019-02-28 05:21] LABS: Eosinophils 7 % (0-10); Lymphocytes 47 % (20-55); Nucleated Red Blood Cells 1 (0-5); Segmented Neutrophils 42 % (50-85); Total Cells Counted 100
[2019-02-28 05:22] LABS: Anisocytosis 1+; Hypochromasia 1+; Platelet Estimate Adequate
[2019-02-28] MEDS: PANTOPRAZOLE 40 MG VIAL IV SCH ×2 (09:17→20:49)
[2019-02-28] MEDS: CYANOCOBALAMIN 100 MCG TABLET PO SCH (09:17)
[2019-02-28] MEDS: ZINC GLUCONATE 50 MG TABLET PO SCH (09:18)
[2019-02-28] MEDS: POLYETHYLENE GLYCOL POWDER 17 GM PACK PO SCH ×2 (09:18→14:59)
[2019-02-28] MEDS: MULTIVITAMIN (CENTRUM) TABLET PO SCH (09:18)
[2019-02-28] MEDS: ASCORBIC ACID 500 MG TABLET PO SCH (09:18)
[2019-02-28] MEDS: HydrOXYzine PAMOATE 25 MG CAPSULE PO SCH ×4 (09:18→20:45)
[2019-02-28] MEDS: ONDANSETRON 4 MG/2 ML VIAL IV PRN (11:32)
[2019-02-28] MEDS: SODIUM CHLORIDE 0.9% 1,000 ML IV SCH ×2 (12:26→16:11)
[2019-02-28] MEDS: PARoxetine 20 MG TABLET PO SCH (20:45)
[2019-02-28] MEDS: PROMETHAZINE 25 MG TABLET PO PRN (20:45)
[2019-02-28] MEDS: NOREPINEPHRINE 8 MG in SODIUM CHLORIDE 0.9% 242 ML IV PRN (21:04)
[2019-02-28 21:24] LABS: Hematocrit 28.8 VOL% (35.7-47.0); Hemoglobin 9.2 GM/DL (12.0-16.0)
[2019-03-01] MEDS: SODIUM CHLORIDE 0.9% 1,000 ML IV SCH ×3 (06:13→20:59)
[2019-03-01] MEDS ORDERED: LACTATED RINGERS 500 ML IV SCH (08:00)
[2019-03-01] MEDS: MIDODRINE 5 MG TABLET PO SCH ×3 (09:26→20:25)
[2019-03-01] MEDS: MULTIVITAMIN (CENTRUM) TABLET PO SCH (09:26)
[2019-03-01] MEDS: CYANOCOBALAMIN 100 MCG TABLET PO SCH (09:27)
[2019-03-01] MEDS: ZINC GLUCONATE 50 MG TABLET PO SCH (09:27)
[2019-03-01] MEDS: ASCORBIC ACID 500 MG TABLET PO SCH (09:27)
[2019-03-01] MEDS: HydrOXYzine PAMOATE 25 MG CAPSULE PO SCH ×5 (09:27→20:26)
[2019-03-01 09:49] LABS: Albumin 2.1 G/DL (3.4-5.0); Bilirubin,Total 0.5 MG/DL (0.2-1.0); Calcium 7.9 MG/DL (8.5-10.1); Osmolality,Calculated 294.1 MOS/KG (273-304); Total Protein 4.3 G/DL (6.4-8.3)
[2019-03-01] MEDS: PANTOPRAZOLE 40 MG VIAL IV SCH ×2 (09:49→20:26)
[2019-03-01] MEDS ORDERED: PROPOFOL 200 MG/20 ML VIAL IV ONE (10:00)
[2019-03-01] MEDS ORDERED: LIDOCAINE 2% 5 ML VIAL ONE (10:00)
[2019-03-01] MEDS ORDERED: PHENYLEPHRINE 1 MG/10 ML SYRINGE IV ONE (10:00)
[2019-03-01] MEDS: PROMETHAZINE 25 MG TABLET PO PRN (20:25)
[2019-03-01] MEDS: PARoxetine 20 MG TABLET PO SCH (20:25)
[2019-03-02] MEDS: SODIUM CHLORIDE 0.9% 1,000 ML IV SCH ×5 (03:22→23:30)
[2019-03-02 04:26] LABS: Basophils % 0.3 % (0.0-0.8); Eosinophils # 0.3 10*3/uL (0.0-0.87); Eosinophils % 8.2 % (0.00-10.9); Hematocrit 26.2 VOL% (35.7-47.0); Hemoglobin 8.3 GM/DL (12.0-16.0); Immature Granulocytes % 0.3 %; Immature Granulocytes Absolute 0.01 #; Lymphocytes # 1.5 10*3/uL (1.4-4.0); Mean Corpuscular HGB Conc 31.7 GM/DL (32-36); Mean Corpuscular Volume 95.6 FL (87-102); Mean Platelet Volume 10.5 FL (9.6-12.0); Monocytes % 1.7 % (1.7-12.7); Neutrophils % 47.5 % (38.7-73.9); Platelet Count 161 T/CUMM (130-400); Red Blood Count 2.74 MC/CUMM (3.8-5.5); Red Cell Distribution Width 15.8 % (9.3-17.3); White Blood Count 3.5 T/CUMM (4-12)
[2019-03-02 04:52] LABS: Calcium 7.6 MG/DL (8.5-10.1); Osmolality,Calculated 291.4 MOS/KG (273-304)
[2019-03-02] MEDS: ASCORBIC ACID 500 MG TABLET PO SCH (08:54)
[2019-03-02] MEDS: MULTIVITAMIN (CENTRUM) TABLET PO SCH (08:54)
[2019-03-02] MEDS: MIDODRINE 5 MG TABLET PO SCH ×3 (08:54→21:50)
[2019-03-02] MEDS: HydrOXYzine PAMOATE 25 MG CAPSULE PO SCH ×4 (08:54→21:50)
[2019-03-02] MEDS: PANTOPRAZOLE 40 MG VIAL IV SCH ×2 (08:55→21:50)
[2019-03-02] MEDS: CYANOCOBALAMIN 100 MCG TABLET PO SCH (08:55)
[2019-03-02] MEDS: ZINC GLUCONATE 50 MG TABLET PO SCH (09:30)
[2019-03-02] MEDS: NYSTATIN 500,000 UNIT/5 ML UDCUP SWISH/SWAL SCH ×3 (12:37→21:50)
[2019-03-02] MEDS: ONDANSETRON 4 MG/2 ML VIAL IV PRN (12:50)
[2019-03-02] MEDS ORDERED: ALUMINUM/MAGNES/SIMETH MAX STR 30 ML UDCUP PO PRN (15:23)
[2019-03-02] MEDS: PROMETHAZINE 25 MG TABLET PO PRN (18:58)
[2019-03-02] MEDS: PARoxetine 20 MG TABLET PO SCH (21:50)
[2019-03-03 04:51] LABS: Basophils % 0.7 % (0.0-0.8); Eosinophils # 0.3 10*3/uL (0.0-0.87); Eosinophils % 9.7 % (0.00-10.9); Hematocrit 25.7 VOL% (35.7-47.0); Lymphocytes # 1.2 10*3/uL (1.4-4.0); Lymphocytes % 39.5 % (21.3-54.2); Mean Corpuscular HGB Conc 31.1 GM/DL (32-36); Mean Corpuscular Volume 95.2 FL (87-102); Mean Platelet Volume 10.5 FL (9.6-12.0); Monocytes % 8.4 % (1.7-12.7); Neutrophils % 41.7 % (38.7-73.9); Platelet Count 159 T/CUMM (130-400); Red Cell Distribution Width 15.7 % (9.3-17.3)
[2019-03-03 05:06] LABS: Calcium 7.4 MG/DL (8.5-10.1); Osmolality,Calculated 289.4 MOS/KG (273-304)
[2019-03-03 05:45] LABS: Anisocytosis Slight; Microcytosis Slight
[2019-03-03 05:46] LABS: Platelet Estimate Normal; Polychromasia Slight
[2019-03-03] MEDS: SODIUM CHLORIDE 0.9% 1,000 ML IV SCH ×3 (09:55→20:57)
[2019-03-03] MEDS: MULTIVITAMIN (CENTRUM) TABLET PO SCH (11:58)
[2019-03-03] MEDS: PANTOPRAZOLE 40 MG VIAL IV SCH ×2 (11:58→21:09)
[2019-03-03] MEDS: NYSTATIN 500,000 UNIT/5 ML UDCUP SWISH/SWAL SCH ×4 (11:58→21:06)
[2019-03-03] MEDS: ASCORBIC ACID 500 MG TABLET PO SCH (11:58)
[2019-03-03] MEDS: HydrOXYzine PAMOATE 25 MG CAPSULE PO SCH ×4 (11:58→21:02)
[2019-03-03] MEDS: MIDODRINE 5 MG TABLET PO SCH ×3 (11:58→21:09)
[2019-03-03] MEDS: CYANOCOBALAMIN 100 MCG TABLET PO SCH (11:58)
[2019-03-03] MEDS: ONDANSETRON 4 MG/2 ML VIAL IV PRN ×2 (11:59→17:10)
[2019-03-03] MEDS: ZINC GLUCONATE 50 MG TABLET PO SCH (11:59)
[2019-03-03] MEDS: PARoxetine 20 MG TABLET PO SCH (21:03)
[2019-03-03] MEDS: PROMETHAZINE 25 MG TABLET PO PRN (21:03)
[2019-03-04 05:48] LABS: Basophils % 1.2 % (0.0-0.8); Eosinophils # 0.2 10*3/uL (0.0-0.87); Eosinophils % 7.8 % (0.00-10.9); Hemoglobin 8.1 GM/DL (12.0-16.0); Lymphocytes % 39.9 % (21.3-54.2); Mean Corpuscular HGB Conc 31.2 GM/DL (32-36); Mean Corpuscular Volume 94.5 FL (87-102); Mean Platelet Volume 11.1 FL (9.6-12.0); Monocytes % 7.8 % (1.7-12.7); Neutrophils % 43.3 % (38.7-73.9); Platelet Count 171 T/CUMM (130-400); Red Blood Count 2.75 MC/CUMM (3.8-5.5); Red Cell Distribution Width 15.3 % (9.3-17.3); White Blood Count 2.4 T/CUMM (4-12)
[2019-03-04 06:20] LABS: Calcium 7.9 MG/DL (8.5-10.1); Osmolality,Calculated 286.6 MOS/KG (273-304)
[2019-03-04 06:28] LABS: Platelet Estimate Normal; Polychromasia Few
[2019-03-04 08:36] LABS: Ferritin 6.5 ng/ml (8-252)
[2019-03-04] MEDS: HydrOXYzine PAMOATE 25 MG CAPSULE PO SCH ×4 (08:44→21:02)
[2019-03-04] MEDS: ZINC GLUCONATE 50 MG TABLET PO SCH (08:44)
[2019-03-04] MEDS: MULTIVITAMIN (CENTRUM) TABLET PO SCH (08:44)
[2019-03-04] MEDS: CYANOCOBALAMIN 100 MCG TABLET PO SCH (08:44)
[2019-03-04] MEDS: NYSTATIN 500,000 UNIT/5 ML UDCUP SWISH/SWAL SCH ×4 (08:44→21:04)
[2019-03-04] MEDS: MIDODRINE 5 MG TABLET PO SCH ×3 (08:44→21:02)
[2019-03-04] MEDS: PANTOPRAZOLE 40 MG VIAL IV SCH ×2 (08:45→21:05)
[2019-03-04] MEDS: ONDANSETRON 4 MG/2 ML VIAL IV PRN ×2 (08:48→19:02)
[2019-03-04] MEDS ORDERED: methylPREDNISolone SOD SUC 125 MG/2 ML VIAL IV ONE (09:00)
[2019-03-04] MEDS ORDERED: ACETAMINOPHEN 500 MG TABLET PO ONE (09:00)
[2019-03-04] MEDS ORDERED: diphenhydrAMINE CAP 50 MG CAPSULE PO ONE (09:00)
[2019-03-04] MEDS ORDERED: IRON SUCROSE 300 MG in SODIUM CHLORIDE 0.9% 100 ML IV ONE (09:30)
[2019-03-04] MEDS: SODIUM CHLORIDE 0.9% 1,000 ML IV SCH (09:49)
[2019-03-04] MEDS: PROMETHAZINE 25 MG TABLET PO PRN (10:02)
[2019-03-04] MEDS: ASCORBIC ACID 500 MG TABLET PO SCH (10:02)
[2019-03-04] MEDS ORDERED: HydrOXYzine PAMOATE 50 MG CAPSULE PO ONE (15:45)
[2019-03-04] MEDS: PARoxetine 20 MG TABLET PO SCH (21:03)
[2019-03-05] MEDS: PROMETHAZINE 25 MG TABLET PO PRN (08:00)
[2019-03-05] MEDS: MULTIVITAMIN (CENTRUM) TABLET PO SCH (08:00)
[2019-03-05] MEDS: HydrOXYzine PAMOATE 25 MG CAPSULE PO SCH (08:00)
[2019-03-05] MEDS: CYANOCOBALAMIN 100 MCG TABLET PO SCH (08:00)
[2019-03-05] MEDS: ZINC GLUCONATE 50 MG TABLET PO SCH (08:00)
[2019-03-05] MEDS: ASCORBIC ACID 500 MG TABLET PO SCH (08:01)
[2019-03-05] MEDS: PANTOPRAZOLE 40 MG VIAL IV SCH ×2 (08:01→08:05)
[2019-03-05] MEDS: NYSTATIN 500,000 UNIT/5 ML UDCUP SWISH/SWAL SCH (08:01)
[2019-03-05] MEDS: MIDODRINE 5 MG TABLET PO SCH (08:01)
[2019-03-05 08:08] LABS: Hematocrit 28.5 VOL% (35.7-47.0); Hemoglobin 8.9 GM/DL (12.0-16.0)
[2019-03-05 10:26] VITALS: BP 104/62
== END 2019-03-05 10:40 | disposition home or self-care (01) | DRG 377 ==
LOC: EDUNIT# → EDBD → N.ED 12:25 → N.EDINP 17:36 → SUATTDRO 17:36 → N.CC 19:31 → N.2E 03-03 13:41
PROVIDERS: ADMIT Internal Medicine; ATTEND Internal Medicine

== ENCOUNTER 2019-03-15 15:27 | Observation (INO) ==
[2019-03-15 16:54] LABS: Basophils % 0.9 % (0.0-0.8); Eosinophils # 0.1 10*3/uL (0.0-0.87); Eosinophils % 2.3 % (0.00-10.9); Hematocrit 35.5 VOL% (35.7-47.0); Hemoglobin 10.7 GM/DL (12.0-16.0); Immature Granulocytes % 0.2 %; Immature Granulocytes Absolute 0.01 #; Lymphocytes # 1.6 10*3/uL (1.4-4.0); Lymphocytes % 37.9 % (21.3-54.2); Mean Corpuscular HGB Conc 30.1 GM/DL (32-36); Mean Corpuscular Volume 94.7 FL (87-102); Mean Platelet Volume 9.5 FL (9.6-12.0); Monocytes % 8.8 % (1.7-12.7); Neutrophils % 49.9 % (38.7-73.9); Platelet Count 321 T/CUMM (130-400); Red Blood Count 3.75 MC/CUMM (3.8-5.5); Red Cell Distribution Width 13.9 % (9.3-17.3); White Blood Count 4.3 T/CUMM (4-12)
[2019-03-15 17:06] LABS: PT Patient Result 10.8 SECS; Partial Thromboplastin Time 26.6 SECS (0-40)
[2019-03-15 17:15] LABS: Alanine Aminotransferase 18 U/L (13-56); Albumin 3.6 G/DL (3.4-5.0); Alkaline Phosphatase 83 U/L (45-117); Aspartate Amino Transferase 23 U/L (0-37); Bilirubin,Total < 0.39 MG/DL (0.2-1.0); Blood Urea Nitrogen 12 MG/DL (7-18); Calcium 8.7 MG/DL (8.5-10.1); Glucose 78 MG/DL (74-106); Osmolality,Calculated 279.3 MOS/KG (273-304); Total Protein 6.7 G/DL (6.4-8.3)
[2019-03-15 22:15] LABS: Hematocrit 33.8 VOL% (35.7-47.0); Hemoglobin 10.5 GM/DL (12.0-16.0)
[2019-03-15] MEDS ORDERED: ONDANSETRON 4 MG/2 ML VIAL ONE (22:38)
[2019-03-15] MEDS ORDERED: HYDROmorphone 2 MG/1 ML VIAL ONE (22:39)
[2019-03-15] MEDS ORDERED: NICOTINE 21 MG/24 HR PATCH TRANSDERM PRN (22:48)
[2019-03-15] MEDS ORDERED: PANTOPRAZOLE 40 MG VIAL IV ONE (22:53)
[2019-03-15] MEDS ORDERED: PANTOPRAZOLE INJ 200 MG in SODIUM CHLORIDE 0.9% 250 ML IV SCH (23:00)
[2019-03-15] MEDS ORDERED: ONDANSETRON 4 MG/2 ML VIAL IV STA (23:15)
[2019-03-15] MEDS ORDERED: HYDROmorphone 2 MG/1 ML VIAL IV STA (23:15)
[2019-03-15] MEDS ORDERED: fentaNYL 100 MCG/2 ML VIAL IV STA (23:34)
[2019-03-16] MEDS: SODIUM CHLORIDE 0.9% 1,000 ML IV SCH ×3 (00:03→18:50)
[2019-03-16 04:49] LABS: Basophils % 0.9 % (0.0-0.8); Eosinophils # 0.1 10*3/uL (0.0-0.87); Eosinophils % 2.4 % (0.00-10.9); Hematocrit 31.4 VOL% (35.7-47.0); Hemoglobin 9.7 GM/DL (12.0-16.0); Immature Granulocytes % 0.3 %; Immature Granulocytes Absolute 0.01 #; Lymphocytes # 1.5 10*3/uL (1.4-4.0); Lymphocytes % 43.6 % (21.3-54.2); Mean Corpuscular HGB Conc 30.9 GM/DL (32-36); Mean Platelet Volume 9.7 FL (9.6-12.0); Monocytes % 10.4 % (1.7-12.7); Neutrophils % 42.4 % (38.7-73.9); Platelet Count 259 T/CUMM (130-400); Red Blood Count 3.34 MC/CUMM (3.8-5.5); White Blood Count 3.4 T/CUMM (4-12)
[2019-03-16] MEDS: ONDANSETRON 4 MG/2 ML VIAL IV PRN ×3 (08:25→16:40)
[2019-03-16 08:57] LABS: Hematocrit 35.3 VOL% (35.7-47.0); Hemoglobin 10.5 GM/DL (12.0-16.0)
[2019-03-16] MEDS: MORPHINE 4 MG/1 ML VIAL IV PRN ×2 (09:16→13:02)
[2019-03-16 14:32] LABS: Hematocrit 32.5 VOL% (35.7-47.0); Hemoglobin 9.8 GM/DL (12.0-16.0)
[2019-03-16] MEDS: traMADol 50 MG TABLET PO PRN ×2 (16:39→22:40)
[2019-03-16 20:22] LABS: Hematocrit 33.8 VOL% (35.7-47.0); Hemoglobin 10.3 GM/DL (12.0-16.0)
[2019-03-17] MEDS: traMADol 50 MG TABLET PO PRN ×2 (04:17→11:12)
[2019-03-17 04:38] LABS: Basophils % 0.8 % (0.0-0.8); Eosinophils # 0.1 10*3/uL (0.0-0.87); Eosinophils % 3.7 % (0.00-10.9); Hematocrit 30.7 VOL% (35.7-47.0); Hemoglobin 9.2 GM/DL (12.0-16.0); Immature Granulocytes % 0.3 %; Immature Granulocytes Absolute 0.01 #; Lymphocytes # 1.4 10*3/uL (1.4-4.0); Lymphocytes % 37.5 % (21.3-54.2); Mean Corpuscular Volume 95.6 FL (87-102); Mean Platelet Volume 9.7 FL (9.6-12.0); Monocytes % 10.1 % (1.7-12.7); Neutrophils % 47.6 % (38.7-73.9); Platelet Count 234 T/CUMM (130-400); Red Blood Count 3.21 MC/CUMM (3.8-5.5); Red Cell Distribution Width 13.7 % (9.3-17.3); White Blood Count 3.8 T/CUMM (4-12)
[2019-03-17] MEDS: SODIUM CHLORIDE 0.9% 1,000 ML IV SCH (04:40)
[2019-03-17 05:28] LABS: Calcium 8.1 MG/DL (8.5-10.1); Osmolality,Calculated 283.8 MOS/KG (273-304)
[2019-03-17] MEDS: ONDANSETRON 4 MG/2 ML VIAL IV PRN ×2 (05:53→11:12)
[2019-03-17] MEDS ORDERED: PARoxetine 20 MG TABLET PO SCH ×2 (07:40→21:00)
[2019-03-17 08:06] LABS: Hematocrit 33.4 VOL% (35.7-47.0)
[2019-03-17] MEDS: HydrOXYzine PAMOATE 25 MG CAPSULE PO SCH ×2 (08:52→14:29)
[2019-03-17] MEDS ORDERED: DICYCLOMINE 20 MG TABLET PO SCH (09:00)
[2019-03-17] MEDS ORDERED: FAMOTIDINE 20 MG TABLET PO SCH (09:00)
[2019-03-17 11:44] LABS: Hematocrit 31.8 VOL% (35.7-47.0); Hemoglobin 9.8 GM/DL (12.0-16.0)
[2019-03-17 11:49] VITALS: BP 92/57
== END 2019-03-17 14:30 | disposition home or self-care (01) ==
LOC: N.ED 15:27 → N.EDINP 15:27 → N.5E 03-16 00:13
PROVIDERS: ADMIT Hospitalist; ATTEND Hospitalist

== ENCOUNTER 2019-05-20 16:11 | Observation (INO) ==
[2019-05-20 17:10] LABS: INR 0.9; PT Patient Result 10.1 SECS
[2019-05-20 17:22] LABS: Basophils % 0.4 % (0.0-0.8); Eosinophils # 0.1 10*3/uL (0.0-0.87); Eosinophils % 1.6 % (0.00-10.9); Hematocrit 35.5 VOL% (35.7-47.0); Hemoglobin 10.9 GM/DL (12.0-16.0); Immature Granulocytes % 0.2 %; Immature Granulocytes Absolute 0.01 #; Lymphocytes # 1.8 10*3/uL (1.4-4.0); Lymphocytes % 35.6 % (21.3-54.2); Mean Corpuscular HGB Conc 30.7 GM/DL (32-36); Mean Corpuscular Volume 84.3 FL (87-102); Mean Platelet Volume 10.7 FL (9.6-12.0); Monocytes % 7.9 % (1.7-12.7); Neutrophils % 54.3 % (38.7-73.9); Platelet Count 240 T/CUMM (130-400); Red Blood Count 4.21 MC/CUMM (3.8-5.5); Red Cell Distribution Width 13.5 % (9.3-17.3); White Blood Count 4.9 T/CUMM (4-12)
[2019-05-20 17:27] LABS: Alanine Aminotransferase 19 U/L (13-56); Albumin 3.8 G/DL (3.4-5.0); Alkaline Phosphatase 90 U/L (45-117); Aspartate Amino Transferase 29 U/L (0-37); Bilirubin,Total < 0.39 MG/DL (0.2-1.0); Blood Urea Nitrogen 10 MG/DL (7-18); Calcium 8.5 MG/DL (8.5-10.1); Glucose 94 MG/DL (74-106); Osmolality,Calculated 279.3 MOS/KG (273-304); Total Protein 7.2 G/DL (6.4-8.3)
[2019-05-20] MEDS ORDERED: ACETAMINOPHEN 325 MG TABLET PO PRN (18:04)
[2019-05-20] MEDS ORDERED: SODIUM CHLORIDE 0.9% 1,000 ML IV PRN (18:04)
[2019-05-20] MEDS ORDERED: ONDANSETRON ODT 4 MG TABLET PO PRN (18:12)
[2019-05-20] MEDS: DICYCLOMINE 20 MG TABLET PO PRN (20:24)
[2019-05-20] MEDS: PARoxetine 20 MG TABLET PO SCH (20:24)
[2019-05-20] MEDS: FAMOTIDINE 20 MG TABLET PO SCH (20:24)
[2019-05-20] MEDS: HydrOXYzine PAMOATE 25 MG CAPSULE PO SCH (20:24)
[2019-05-20] MEDS: ONDANSETRON 4 MG/2 ML VIAL IV PRN (20:25)
[2019-05-20] MEDS: PROMETHAZINE 25 MG TABLET PO PRN (23:19)
[2019-05-20 23:39] LABS: Hematocrit 35.4 VOL% (35.7-47.0); Hemoglobin 10.5 GM/DL (12.0-16.0)
[2019-05-21] MEDS: ONDANSETRON 4 MG/2 ML VIAL IV PRN ×3 (04:53→19:41)
[2019-05-21 05:58] LABS: Hematocrit 36.7 VOL% (35.7-47.0); Hemoglobin 10.9 GM/DL (12.0-16.0)
[2019-05-21] MEDS: ZINC GLUCONATE 50 MG TABLET PO SCH (09:20)
[2019-05-21] MEDS: HydrOXYzine PAMOATE 25 MG CAPSULE PO SCH ×4 (09:20→20:27)
[2019-05-21] MEDS: MULTIVITAMIN (CENTRUM) TABLET PO SCH (09:20)
[2019-05-21] MEDS: DICYCLOMINE 20 MG TABLET PO PRN (09:20)
[2019-05-21] MEDS: CYANOCOBALAMIN 100 MCG TABLET PO SCH (09:21)
[2019-05-21] MEDS: PANTOPRAZOLE 40 MG TABLET PO SCH (09:21)
[2019-05-21] MEDS: PROMETHAZINE 25 MG TABLET PO PRN (09:39)
[2019-05-21 11:30] LABS: Hematocrit 38.8 VOL% (35.7-47.0); Hemoglobin 11.8 GM/DL (12.0-16.0)
[2019-05-21] MEDS: traMADol 50 MG TABLET PO PRN ×2 (14:01→19:42)
[2019-05-21 17:43] LABS: Hematocrit 34.7 VOL% (35.7-47.0); Hemoglobin 10.5 GM/DL (12.0-16.0)
[2019-05-21] MEDS: PARoxetine 20 MG TABLET PO SCH (20:27)
[2019-05-21] MEDS: FAMOTIDINE 20 MG TABLET PO SCH (20:28)
[2019-05-22] MEDS: ONDANSETRON 4 MG/2 ML VIAL IV PRN (04:18)
[2019-05-22] MEDS: traMADol 50 MG TABLET PO PRN ×2 (04:18→08:32)
[2019-05-22 04:39] LABS: Basophils % 0.8 % (0.0-0.8); Eosinophils # 0.2 10*3/uL (0.0-0.87); Eosinophils % 5.3 % (0.00-10.9); Hematocrit 35.8 VOL% (35.7-47.0); Hemoglobin 10.7 GM/DL (12.0-16.0); Immature Granulocytes % 0.3 %; Immature Granulocytes Absolute 0.01 #; Lymphocytes # 1.9 10*3/uL (1.4-4.0); Lymphocytes % 47.9 % (21.3-54.2); Mean Corpuscular HGB Conc 29.9 GM/DL (32-36); Mean Corpuscular Volume 86.3 FL (87-102); Mean Platelet Volume 10.5 FL (9.6-12.0); Neutrophils % 37.7 % (38.7-73.9); Platelet Count 230 T/CUMM (130-400); Red Blood Count 4.15 MC/CUMM (3.8-5.5); Red Cell Distribution Width 13.6 % (9.3-17.3)
[2019-05-22 05:16] LABS: Calcium 8.4 MG/DL (8.5-10.1)
[2019-05-22 05:18] LABS: Anisocytosis 1+; Eosinophils 4 % (0-10); Lymphocytes 46 % (20-55); Platelet Estimate Adequate; Segmented Neutrophils 46 % (50-85); Total Cells Counted 100
[2019-05-22 07:55] VITALS: BP 98/71
[2019-05-22] MEDS: CYANOCOBALAMIN 100 MCG TABLET PO SCH (08:32)
[2019-05-22] MEDS: PROMETHAZINE 25 MG TABLET PO PRN (08:32)
[2019-05-22] MEDS: MULTIVITAMIN (CENTRUM) TABLET PO SCH (08:32)
[2019-05-22] MEDS: PANTOPRAZOLE 40 MG TABLET PO SCH (08:33)
[2019-05-22] MEDS: ZINC GLUCONATE 50 MG TABLET PO SCH (08:33)
[2019-05-22] MEDS: HydrOXYzine PAMOATE 25 MG CAPSULE PO SCH (08:33)
== END 2019-05-22 11:10 | disposition home or self-care (01) ==
LOC: N.2E 16:11 → N.ED 16:11 → SUATTDRO 18:04 → N.2E 19:16
PROVIDERS: ADMIT Emergency Medicine; ATTEND Internal Medicine

== ENCOUNTER 2019-05-30 14:21 | Observation (INO) ==
[2019-05-30] MEDS ORDERED: ONDANSETRON 4 MG/2 ML VIAL IV STA (16:16)
[2019-05-30] MEDS ORDERED: HYDROmorphone 2 MG/1 ML VIAL IV STA (16:16)
[2019-05-30] MEDS ORDERED: SODIUM CHLORIDE 0.9% 1,000 ML IV STA (16:16)
[2019-05-30 17:13] LABS: Apearance,Urine CLEAR (Clear); Bilirubin,Urine Negative (Negative); Blood, Urine Negative (Negative); Glucose,Urine (UA) Negative (Negative); Ketones,Urine Negative (Negative); Nitrite,Urine Negative (Negative); Protein,Urine Negative; RBC,Urine 1 /HPF (0-4); Squamous Epithelial Cell,Urine Occasional /HPF (0-10); Urine Color Straw (Yellow); Urine Specific Gravity 1.008 (1.001-1.035); Urine Urobilinogen < 2.0 EU/DL (0.2-1.0); WBC,Urine 1 /HPF (0-6)
[2019-05-30 17:21] LABS: Basophils % 0.7 % (0.0-0.8); Eosinophils # 0.1 10*3/uL (0.0-0.87); Eosinophils % 2.3 % (0.00-10.9); Hematocrit 38.5 VOL% (35.7-47.0); Hemoglobin 11.7 GM/DL (12.0-16.0); Immature Granulocytes % 0.2 %; Immature Granulocytes Absolute 0.01 #; Lymphocytes # 1.4 10*3/uL (1.4-4.0); Lymphocytes % 31.8 % (21.3-54.2); Mean Corpuscular HGB Conc 30.4 GM/DL (32-36); Mean Corpuscular Volume 84.2 FL (87-102); Mean Platelet Volume 10.7 FL (9.6-12.0); Monocytes % 7.7 % (1.7-12.7); Neutrophils % 57.3 % (38.7-73.9); Platelet Count 302 T/CUMM (130-400); Red Blood Count 4.57 MC/CUMM (3.8-5.5); White Blood Count 4.4 T/CUMM (4-12)
[2019-05-30 17:33] LABS: Alanine Aminotransferase 23 U/L (13-56); Albumin 3.8 G/DL (3.4-5.0); Alkaline Phosphatase 93 U/L (45-117); Aspartate Amino Transferase 28 U/L (0-37); Bilirubin,Total < 0.39 MG/DL (0.2-1.0); Blood Urea Nitrogen 12 MG/DL (7-18); Calcium 8.8 MG/DL (8.5-10.1); Glucose 98 MG/DL (74-106); Osmolality,Calculated 278.4 MOS/KG (273-304)
[2019-05-30] MEDS ORDERED: PROMETHAZINE 25 MG/1 ML VIAL IM PRN (18:55)
[2019-05-30] MEDS ORDERED: ACETAMINOPHEN 325 MG TABLET PO PRN (18:55)
[2019-05-30] MEDS ORDERED: DOCUSATE SODIUM 100 MG CAPSULE PO PRN (18:55)
[2019-05-30] MEDS: SODIUM CHLORIDE 0.9% 1,000 ML IV SCH (20:00)
[2019-05-30] MEDS: PARoxetine 20 MG TABLET PO SCH (20:53)
[2019-05-30] MEDS: ENOXAPARIN 40 MG/0.4 ML SYRINGE SUBCUT SCH (20:54)
[2019-05-30] MEDS: HydrOXYzine PAMOATE 25 MG CAPSULE PO SCH (21:40)
[2019-05-30] MEDS: DICYCLOMINE 20 MG TABLET PO PRN (21:40)
[2019-05-30] MEDS ORDERED: ALBUTEROL 2.5 MG/3 ML NEB RESP TX PRN (23:00)
[2019-05-31 05:43] LABS: Alanine Aminotransferase 16 U/L (13-56); Albumin 2.9 G/DL (3.4-5.0); Alkaline Phosphatase 67 U/L (45-117); Aspartate Amino Transferase 18 U/L (0-37); Bilirubin,Total < 0.39 MG/DL (0.2-1.0); Blood Urea Nitrogen 9 MG/DL (7-18); Glucose 93 MG/DL (74-106); Osmolality,Calculated 286.7 MOS/KG (273-304)
[2019-05-31 05:56] LABS: Basophils % 0.9 % (0.0-0.8); Eosinophils # 0.2 10*3/uL (0.0-0.87); Eosinophils % 6.3 % (0.00-10.9); Hematocrit 33.5 VOL% (35.7-47.0); Hemoglobin 10.1 GM/DL (12.0-16.0); Lymphocytes # 1.5 10*3/uL (1.4-4.0); Lymphocytes % 45.5 % (21.3-54.2); Mean Corpuscular HGB Conc 30.1 GM/DL (32-36); Mean Corpuscular Volume 85.7 FL (87-102); Mean Platelet Volume 10.5 FL (9.6-12.0); Monocytes % 9.7 % (1.7-12.7); Neutrophils % 37.6 % (38.7-73.9); Platelet Count 230 T/CUMM (130-400); Red Blood Count 3.91 MC/CUMM (3.8-5.5); Red Cell Distribution Width 14.2 % (9.3-17.3); White Blood Count 3.2 T/CUMM (4-12)
[2019-05-31 06:04] LABS: Lymphocytes 53 % (20-55)
[2019-05-31 06:05] LABS: Atypical Lymphocytes Few; Eosinophils 3 % (0-10); Hypochromasia 1+; Platelet Estimate Adequate; Segmented Neutrophils 38 % (50-85); Total Cells Counted 100
[2019-05-31] MEDS: ONDANSETRON 4 MG/2 ML VIAL IV PRN ×3 (06:24→18:35)
[2019-05-31] MEDS: HydrOXYzine PAMOATE 25 MG CAPSULE PO SCH ×4 (08:16→20:23)
[2019-05-31] MEDS: FUROSEMIDE 40 MG TABLET PO SCH (08:16)
[2019-05-31] MEDS: DICYCLOMINE 20 MG TABLET PO PRN ×2 (08:16→13:49)
[2019-05-31] MEDS: PANTOPRAZOLE 40 MG TABLET PO SCH (08:17)
[2019-05-31] MEDS: SODIUM CHLORIDE 0.9% 1,000 ML IV SCH ×2 (09:19→22:40)
[2019-05-31] MEDS: HYOSCYAMINE 0.125 MG TABLET PO SCH ×2 (15:22→20:23)
[2019-05-31] MEDS: ENOXAPARIN 40 MG/0.4 ML SYRINGE SUBCUT SCH (20:23)
[2019-05-31] MEDS: PARoxetine 20 MG TABLET PO SCH (20:23)
[2019-06-01] MEDS: HYOSCYAMINE 0.125 MG TABLET PO SCH ×3 (02:52→15:26)
[2019-06-01] MEDS ORDERED: LACTATED RINGERS 1,000 ML IV SCH (07:00)
[2019-06-01] MEDS: PANTOPRAZOLE 40 MG TABLET PO SCH (08:53)
[2019-06-01] MEDS: FUROSEMIDE 40 MG TABLET PO SCH (08:53)
[2019-06-01] MEDS: HydrOXYzine PAMOATE 25 MG CAPSULE PO SCH ×2 (08:53→15:26)
[2019-06-01] MEDS: ONDANSETRON 4 MG/2 ML VIAL IV PRN (10:16)
[2019-06-01] MEDS ORDERED: ONDANSETRON 4 MG/2 ML VIAL ONE (13:03)
[2019-06-01] MEDS ORDERED: LIDOCAINE 100 MG/5 ML SYRINGE ONE (14:00)
[2019-06-01] MEDS ORDERED: PROPOFOL 200 MG/20 ML VIAL IV ONE (14:00)
[2019-06-01] MEDS ORDERED: MIDAZOLAM 2 MG/2 ML VIAL ONE (14:09)
[2019-06-01 14:51] VITALS: BP 108/73
== END 2019-06-01 13:37 | disposition home or self-care (01) ==
LOC: N.EDINP 14:21 → N.ED 14:21 → N.EDINP 18:25 → N.2E 18:30
PROVIDERS: ADMIT Internal Medicine; ATTEND Internal Medicine

== ENCOUNTER 2019-08-23 04:42 | Inpatient (IN) ==
[2019-08-23 05:49] LABS: Basophils % 0.6 % (0.0-0.8); Eosinophils % 0.2 % (0.00-10.9); Hematocrit 29.1 VOL% (35.7-47.0); Hemoglobin 8.5 GM/DL (12.0-16.0); Immature Granulocytes % 0.4 %; Immature Granulocytes Absolute 0.02 #; Lymphocytes # 1.7 10*3/uL (1.4-4.0); Lymphocytes % 34.5 % (21.3-54.2); Mean Corpuscular HGB Conc 29.2 GM/DL (32-36); Mean Corpuscular Volume 79.9 FL (87-102); Mean Platelet Volume 10.5 FL (9.6-12.0); Monocytes % 8.2 % (1.7-12.7); NRBC # 0.02 10*3/uL; Neutrophils % 56.1 % (38.7-73.9); Platelet Count 327 T/CUMM (130-400); Red Blood Count 3.64 MC/CUMM (3.8-5.5); Red Cell Distribution Width 16.8 % (9.3-17.3)
[2019-08-23 05:53] LABS: INR 1.1; PT Patient Result 11.4 SECS (9.6-12.2)
[2019-08-23 06:03] LABS: Alanine Aminotransferase 17 U/L (13-56); Albumin 3.7 G/DL (3.4-5.0); Alkaline Phosphatase 73 U/L (45-117); Aspartate Amino Transferase 24 U/L (0-37); Bilirubin,Total < 0.39 MG/DL (0.2-1.0); Blood Urea Nitrogen 21 MG/DL (7-18); Calcium 8.1 MG/DL (8.5-10.1); Estimated Glom Filtration Rate 72 ML/MIN; Glucose 97 MG/DL (74-106); Osmolality,Calculated 288.8 MOS/KG (273-304); Total Protein 7.1 G/DL (6.4-8.3)
[2019-08-23] MEDS ORDERED: SODIUM CHLORIDE 0.9% 1,000 ML IV STA (06:38)
[2019-08-23 06:52] LABS: Apearance,Urine Slightly Hazy (Clear); Bilirubin,Urine Negative (Negative); Blood, Urine Large mg/dL (Negative); Glucose,Urine (UA) Negative (Negative); Hyaline Casts,Urine 1 /LPF (0-3); Ketones,Urine Negative (Negative); Mucus,Urine Occasional /LPF (Occasional); Nitrite,Urine Negative (Negative); Protein,Urine Negative; RBC,Urine 300 /HPF (0-4); Squamous Epithelial Cell,Urine Occasional /HPF (0-10); Urine Color Yellow (Yellow); Urine Urobilinogen < 2.0 EU/DL (0.2-1.0); WBC,Urine 5 /HPF (0-6)
[2019-08-23] MEDS ORDERED: ONDANSETRON 4 MG/2 ML VIAL IV ONE (07:19)
[2019-08-23] MEDS ORDERED: BISACODYL 10 MG SUPP RECTAL PRN (08:23)
[2019-08-23] MEDS ORDERED: IBUPROFEN 800 MG TABLET PO PRN (08:23)
[2019-08-23] MEDS ORDERED: MAGNESIUM HYDROXIDE SUSP 30 ML UDCUP PO PRN (08:23)
[2019-08-23] MEDS ORDERED: SODIUM CHLORIDE 0.9% 1,000 ML IV PRN (09:20)
[2019-08-23] MEDS: DOCUSATE SODIUM 100 MG CAPSULE PO SCH ×2 (14:10→21:49)
[2019-08-23] MEDS ORDERED: ALBUTEROL 2.5 MG/3 ML NEB RESP TX PRN (19:00)
[2019-08-23 19:30] LABS: Hematocrit 30.4 VOL% (35.7-47.0); Hemoglobin 8.8 GM/DL (12.0-16.0)
[2019-08-23] MEDS: ALBUTEROL/IPRATROPIUM 3 ML NEB RESP TX SCH (19:30)
[2019-08-23] MEDS: POTASSIUM CHLORIDE 20 MEQ TABLET PO PRN ×3 (20:06→23:38)
[2019-08-23] MEDS: SERTRALINE 50 MG TABLET PO SCH (20:06)
[2019-08-23] MEDS: PANTOPRAZOLE 40 MG VIAL IV SCH (21:41)
[2019-08-23] MEDS: LACTATED RINGERS 1,000 ML IV SCH (23:43)
[2019-08-23 23:53] LABS: Hematocrit 28.6 VOL% (35.7-47.0); Hemoglobin 8.3 GM/DL (12.0-16.0)
[2019-08-24] MEDS: ALBUTEROL/IPRATROPIUM 3 ML NEB RESP TX SCH ×4 (00:30→19:30)
[2019-08-24] MEDS: POTASSIUM CHLORIDE 20 MEQ TABLET PO PRN ×4 (01:55→23:06)
[2019-08-24 06:27] LABS: Hemoglobin 8.4 GM/DL (12.0-16.0)
[2019-08-24 06:29] LABS: Hematocrit 29.6 VOL% (35.7-47.0)
[2019-08-24 08:47] LABS: Basophils % 0.5 % (0.0-0.8); Eosinophils % 0.2 % (0.00-10.9); Hematocrit 31.7 VOL% (35.7-47.0); Hemoglobin 9.3 GM/DL (12.0-16.0); Immature Granulocytes % 0.2 %; Immature Granulocytes Absolute 0.01 #; Lymphocytes # 1.8 10*3/uL (1.4-4.0); Lymphocytes % 41.5 % (21.3-54.2); Mean Corpuscular HGB Conc 29.3 GM/DL (32-36); Mean Corpuscular Volume 78.7 FL (87-102); Monocytes % 8.3 % (1.7-12.7); NRBC # 0.05 10*3/uL; Neutrophils % 49.3 % (38.7-73.9); Platelet Count 391 T/CUMM (130-400); Red Blood Count 4.03 MC/CUMM (3.8-5.5); Red Cell Distribution Width 17.2 % (9.3-17.3); White Blood Count 4.2 T/CUMM (4-12)
[2019-08-24] MEDS ORDERED: FUROSEMIDE 40 MG TABLET PO SCH (09:00)
[2019-08-24] MEDS ORDERED: PANTOPRAZOLE 40 MG TABLET PO SCH (09:00)
[2019-08-24 09:40] LABS: Calcium 8.5 MG/DL (8.5-10.1); Osmolality,Calculated 289.6 MOS/KG (273-304)
[2019-08-24] MEDS: NYSTATIN 500,000 UNIT/5 ML UDCUP SWISH/SWAL SCH ×4 (09:57→21:20)
[2019-08-24] MEDS: ACETAMINOPHEN 325 MG TABLET PO PRN (09:57)
[2019-08-24] MEDS: MULTIVITAMIN (CENTRUM) TABLET PO SCH (09:58)
[2019-08-24] MEDS: CYANOCOBALAMIN 100 MCG TABLET PO SCH (09:58)
[2019-08-24] MEDS: PANTOPRAZOLE 40 MG VIAL IV SCH ×2 (09:58→21:15)
[2019-08-24] MEDS: predniSONE 20 MG TABLET PO SCH (09:58)
[2019-08-24] MEDS: LACTATED RINGERS 1,000 ML IV SCH ×3 (10:01→21:25)
[2019-08-24] MEDS: DOCUSATE SODIUM 100 MG CAPSULE PO SCH ×2 (10:01→21:19)
[2019-08-24] MEDS ORDERED: ALBUTEROL/IPRATROPIUM 3 ML NEB RESP TX PRN (12:21)
[2019-08-24] MEDS: cefTRIAXone 1,000 MG in SYRINGE 1 EACH IV SCH (14:16)
[2019-08-24] MEDS: AZITHROMYCIN INJ 500 MG in SODIUM CHLORIDE 0.9% 250 ML IV SCH (14:17)
[2019-08-24] MEDS: ONDANSETRON 4 MG/2 ML VIAL IV PRN (18:10)
[2019-08-24] MEDS: PHENOL 1.4% THROAT SPRAY 177 ML BOTTLE PO PRN (18:19)
[2019-08-24] MEDS: OSELTAMIVIR 75 MG CAPSULE PO SCH (21:19)
[2019-08-24] MEDS: SERTRALINE 50 MG TABLET PO SCH ×2 (21:19→21:21)
[2019-08-25] MEDS: ALBUTEROL/IPRATROPIUM 3 ML NEB RESP TX SCH ×7 (00:30→23:28)
[2019-08-25] MEDS: ACETAMINOPHEN 325 MG TABLET PO PRN (03:21)
[2019-08-25 05:54] LABS: Basophils % 0.4 % (0.0-0.8); Eosinophils % 0.6 % (0.00-10.9); Hematocrit 26.9 VOL% (35.7-47.0); Immature Granulocytes % 0.6 %; Immature Granulocytes Absolute 0.03 #; Lymphocytes # 1.9 10*3/uL (1.4-4.0); Lymphocytes % 41.7 % (21.3-54.2); Mean Corpuscular HGB Conc 29.7 GM/DL (32-36); Mean Corpuscular Volume 78.7 FL (87-102); Monocytes % 8.2 % (1.7-12.7); NRBC # 0.04 10*3/uL; Neutrophils % 48.5 % (38.7-73.9); Platelet Count 320 T/CUMM (130-400); Red Blood Count 3.42 MC/CUMM (3.8-5.5); White Blood Count 4.7 T/CUMM (4-12)
[2019-08-25 06:13] LABS: Calcium 7.7 MG/DL (8.5-10.1); Osmolality,Calculated 286.7 MOS/KG (273-304)
[2019-08-25] MEDS: LACTATED RINGERS 1,000 ML IV SCH ×4 (06:27→17:24)
[2019-08-25] MEDS: AZITHROMYCIN INJ 500 MG in SODIUM CHLORIDE 0.9% 250 ML IV SCH (08:42)
[2019-08-25] MEDS: DOCUSATE SODIUM 100 MG CAPSULE PO SCH ×2 (08:44→22:13)
[2019-08-25] MEDS: PANTOPRAZOLE 40 MG VIAL IV SCH ×2 (08:44→21:58)
[2019-08-25] MEDS: CYANOCOBALAMIN 100 MCG TABLET PO SCH (08:44)
[2019-08-25] MEDS: NYSTATIN 500,000 UNIT/5 ML UDCUP SWISH/SWAL SCH ×4 (08:44→21:57)
[2019-08-25] MEDS: predniSONE 20 MG TABLET PO SCH (08:45)
[2019-08-25] MEDS: OSELTAMIVIR 75 MG CAPSULE PO SCH ×2 (08:45→21:58)
[2019-08-25] MEDS: cefTRIAXone 1,000 MG in SYRINGE 1 EACH IV SCH (08:46)
[2019-08-25] MEDS: MULTIVITAMIN (CENTRUM) TABLET PO SCH (09:03)
[2019-08-25] MEDS: ONDANSETRON 4 MG/2 ML VIAL IV PRN (17:22)
[2019-08-25] MEDS: LORazepam 2 MG/1 ML VIAL IV PRN (17:22)
[2019-08-26] MEDS: LACTATED RINGERS 1,000 ML IV SCH (01:30)
[2019-08-26] MEDS: ALBUTEROL/IPRATROPIUM 3 ML NEB RESP TX SCH ×5 (03:01→20:56)
[2019-08-26 06:00] LABS: Basophils % 0.4 % (0.0-0.8); Eosinophils # 0.1 10*3/uL (0.0-0.87); Eosinophils % 1.1 % (0.00-10.9); Hematocrit 25.8 VOL% (35.7-47.0); Hemoglobin 7.5 GM/DL (12.0-16.0); Immature Granulocytes % 0.4 %; Immature Granulocytes Absolute 0.02 #; Lymphocytes # 1.9 10*3/uL (1.4-4.0); Lymphocytes % 39.6 % (21.3-54.2); Mean Corpuscular HGB Conc 29.1 GM/DL (32-36); Mean Corpuscular Volume 79.6 FL (87-102); Mean Platelet Volume 10.4 FL (9.6-12.0); Monocytes % 8.2 % (1.7-12.7); NRBC # 0.05 10*3/uL; Neutrophils % 50.3 % (38.7-73.9); Platelet Count 285 T/CUMM (130-400); Red Blood Count 3.24 MC/CUMM (3.8-5.5); Red Cell Distribution Width 17.1 % (9.3-17.3); White Blood Count 4.8 T/CUMM (4-12)
[2019-08-26 06:07] LABS: Calcium 8.2 MG/DL (8.5-10.1); Osmolality,Calculated 295.1 MOS/KG (273-304)
[2019-08-26] MEDS: LORazepam 2 MG/1 ML VIAL IV PRN ×3 (07:35→23:27)
[2019-08-26] MEDS: ONDANSETRON 4 MG/2 ML VIAL IV PRN ×3 (07:37→23:25)
[2019-08-26 08:26] LABS: Hematocrit 25.5 VOL% (35.7-47.0); Hemoglobin 7.4 GM/DL (12.0-16.0)
[2019-08-26] MEDS: OSELTAMIVIR 75 MG CAPSULE PO SCH ×2 (09:36→20:35)
[2019-08-26] MEDS: DOCUSATE SODIUM 100 MG CAPSULE PO SCH ×2 (09:36→20:36)
[2019-08-26] MEDS: predniSONE 20 MG TABLET PO SCH (09:36)
[2019-08-26] MEDS: MULTIVITAMIN (CENTRUM) TABLET PO SCH (09:36)
[2019-08-26] MEDS: NYSTATIN 500,000 UNIT/5 ML UDCUP SWISH/SWAL SCH ×4 (09:36→20:35)
[2019-08-26] MEDS: PANTOPRAZOLE 40 MG VIAL IV SCH ×2 (09:38→20:35)
[2019-08-26] MEDS: CYANOCOBALAMIN 100 MCG TABLET PO SCH (09:43)
[2019-08-26] MEDS: cefTRIAXone 1,000 MG in SYRINGE 1 EACH IV SCH (09:44)
[2019-08-26] MEDS ORDERED: SODIUM CHLORIDE 0.9% 1,000 ML IV PRN (11:25)
[2019-08-26] MEDS ORDERED: SALIVA SUBSTITUTE SPRAY 60 ML CAN SWISH/SWAL PRN (11:34)
[2019-08-26 12:06] LABS: Folate 15.5 NG/ML (5.4-24.0)
[2019-08-26 12:09] LABS: % Iron Saturation 3.2 % (18-50); Ferritin 2.7 ng/ml (8-252)
[2019-08-26 20:13] LABS: Hematocrit 31.8 VOL% (35.7-47.0); Hemoglobin 9.7 GM/DL (12.0-16.0)
[2019-08-27] MEDS: ALBUTEROL/IPRATROPIUM 3 ML NEB RESP TX SCH ×3 (00:07→07:36)
[2019-08-27] MEDS: ONDANSETRON 4 MG/2 ML VIAL IV PRN ×2 (05:54→14:20)
[2019-08-27] MEDS: LORazepam 2 MG/1 ML VIAL IV PRN ×2 (05:54→14:38)
[2019-08-27] MEDS: OSELTAMIVIR 75 MG CAPSULE PO SCH ×2 (08:48→20:42)
[2019-08-27] MEDS: MULTIVITAMIN (CENTRUM) TABLET PO SCH (08:48)
[2019-08-27] MEDS: DOCUSATE SODIUM 100 MG CAPSULE PO SCH ×2 (08:48→20:42)
[2019-08-27] MEDS: predniSONE 20 MG TABLET PO SCH (08:48)
[2019-08-27] MEDS: CYANOCOBALAMIN 100 MCG TABLET PO SCH (08:48)
[2019-08-27] MEDS: NYSTATIN 500,000 UNIT/5 ML UDCUP SWISH/SWAL SCH ×4 (08:49→20:43)
[2019-08-27] MEDS: PANTOPRAZOLE 40 MG VIAL IV SCH ×2 (08:51→21:02)
[2019-08-27] MEDS: cefTRIAXone 1,000 MG in SYRINGE 1 EACH IV SCH (08:56)
[2019-08-27] MEDS: LEVALBUTEROL 0.63 MG/3 ML NEB RESP TX SCH ×4 (11:19→23:30)
[2019-08-27] MEDS: POTASSIUM CHLORIDE 20 MEQ TABLET PO PRN ×2 (20:42→23:16)
[2019-08-28] MEDS: LEVALBUTEROL 0.63 MG/3 ML NEB RESP TX SCH ×6 (03:20→23:28)
[2019-08-28 04:19] LABS: Basophils % 0.7 % (0.0-0.8); Eosinophils # 0.1 10*3/uL (0.0-0.87); Eosinophils % 1.2 % (0.00-10.9); Hematocrit 31.6 VOL% (35.7-47.0); Hemoglobin 9.3 GM/DL (12.0-16.0); Immature Granulocytes % 0.5 %; Immature Granulocytes Absolute 0.02 #; Lymphocytes # 1.8 10*3/uL (1.4-4.0); Lymphocytes % 43.9 % (21.3-54.2); Mean Corpuscular HGB Conc 29.4 GM/DL (32-36); Mean Corpuscular Volume 82.1 FL (87-102); Mean Platelet Volume 10.1 FL (9.6-12.0); Monocytes % 11.2 % (1.7-12.7); NRBC # 0.05 10*3/uL; Neutrophils % 42.5 % (38.7-73.9); Platelet Count 257 T/CUMM (130-400); Red Blood Count 3.85 MC/CUMM (3.8-5.5); Red Cell Distribution Width 17.4 % (9.3-17.3)
[2019-08-28] MEDS: NYSTATIN 500,000 UNIT/5 ML UDCUP SWISH/SWAL SCH ×4 (09:46→20:08)
[2019-08-28] MEDS: DOCUSATE SODIUM 100 MG CAPSULE PO SCH ×2 (09:47→20:07)
[2019-08-28] MEDS: MULTIVITAMIN (CENTRUM) TABLET PO SCH (09:47)
[2019-08-28] MEDS: CYANOCOBALAMIN 100 MCG TABLET PO SCH (09:47)
[2019-08-28] MEDS: OSELTAMIVIR 75 MG CAPSULE PO SCH ×2 (09:47→20:07)
[2019-08-28] MEDS: predniSONE 20 MG TABLET PO SCH (09:47)
[2019-08-28] MEDS: cefTRIAXone 1,000 MG in SYRINGE 1 EACH IV SCH (10:04)
[2019-08-28] MEDS: PANTOPRAZOLE 40 MG VIAL IV SCH ×2 (10:04→20:07)
[2019-08-28] MEDS: LORazepam 2 MG/1 ML VIAL IV PRN (13:43)
[2019-08-29] MEDS: LEVALBUTEROL 0.63 MG/3 ML NEB RESP TX SCH ×4 (03:05→14:58)
[2019-08-29] MEDS: PHENOL 1.4% THROAT SPRAY 177 ML BOTTLE PO PRN (04:16)
[2019-08-29 05:41] LABS: Basophils % 0.9 % (0.0-0.8); Eosinophils # 0.1 10*3/uL (0.0-0.87); Eosinophils % 1.3 % (0.00-10.9); Hematocrit 33.2 VOL% (35.7-47.0); Hemoglobin 9.8 GM/DL (12.0-16.0); Immature Granulocytes % 0.9 %; Immature Granulocytes Absolute 0.04 #; Lymphocytes # 1.8 10*3/uL (1.4-4.0); Lymphocytes % 39.5 % (21.3-54.2); Mean Corpuscular HGB Conc 29.5 GM/DL (32-36); Mean Corpuscular Volume 83.4 FL (87-102); Mean Platelet Volume 10.5 FL (9.6-12.0); Monocytes % 8.4 % (1.7-12.7); NRBC # 0.02 10*3/uL; Platelet Count 274 T/CUMM (130-400); Red Blood Count 3.98 MC/CUMM (3.8-5.5); Red Cell Distribution Width 17.6 % (9.3-17.3); White Blood Count 4.5 T/CUMM (4-12)
[2019-08-29 05:58] LABS: Calcium 8.5 MG/DL (8.5-10.1); Osmolality,Calculated 287.7 MOS/KG (273-304)
[2019-08-29] MEDS: NYSTATIN 500,000 UNIT/5 ML UDCUP SWISH/SWAL SCH ×2 (08:22→13:42)
[2019-08-29] MEDS: MULTIVITAMIN (CENTRUM) TABLET PO SCH (08:23)
[2019-08-29] MEDS: OSELTAMIVIR 75 MG CAPSULE PO SCH (08:23)
[2019-08-29] MEDS: CYANOCOBALAMIN 100 MCG TABLET PO SCH (08:23)
[2019-08-29] MEDS: DOCUSATE SODIUM 100 MG CAPSULE PO SCH (08:23)
[2019-08-29] MEDS: predniSONE 20 MG TABLET PO SCH (08:23)
[2019-08-29] MEDS: cefTRIAXone 1,000 MG in SYRINGE 1 EACH IV SCH (08:24)
[2019-08-29] MEDS: PANTOPRAZOLE 40 MG VIAL IV SCH (08:24)
[2019-08-29] MEDS: ONDANSETRON 4 MG/2 ML VIAL IV PRN ×2 (08:38→13:41)
[2019-08-29 12:01] VITALS: BP 114/71
[2019-08-29] MEDS: LORazepam 2 MG/1 ML VIAL IV PRN (13:41)
== END 2019-08-29 16:39 | disposition home or self-care (01) | DRG 377 ==
LOC: N.ED 04:42 → N.EDINP 04:42 → N.OB 07:17 → N.2E 08-24 08:59 → SUATTDRO 08-25 10:01
PROVIDERS: ADMIT Internal Medicine Gastroenterology; ATTEND Internal Medicine Geriatric Medicine

== ENCOUNTER 2019-09-12 05:46 | Inpatient (IN) ==
[2019-09-12] MEDS ORDERED: ONDANSETRON 4 MG/2 ML VIAL IV STA (06:06)
[2019-09-12] MEDS ORDERED: PANTOPRAZOLE 40 MG VIAL IV STA (06:06)
[2019-09-12] MEDS ORDERED: SODIUM CHLORIDE 0.9% 1,000 ML IV STA (06:06)
[2019-09-12 06:49] LABS: Basophils % 0.7 % (0.0-0.8); Eosinophils # 0.1 10*3/uL (0.0-0.87); Eosinophils % 1.1 % (0.00-10.9); Hematocrit 34.2 VOL% (35.7-47.0); Hemoglobin 10.3 GM/DL (12.0-16.0); Immature Granulocytes % 0.7 %; Immature Granulocytes Absolute 0.04 #; Lymphocytes # 1.3 10*3/uL (1.4-4.0); Lymphocytes % 22.8 % (21.3-54.2); Mean Corpuscular HGB Conc 30.1 GM/DL (32-36); Mean Corpuscular Volume 83.4 FL (87-102); Mean Platelet Volume 10.4 FL (9.6-12.0); Monocytes % 7.2 % (1.7-12.7); Neutrophils % 67.5 % (38.7-73.9); Platelet Count 346 T/CUMM (130-400); Red Cell Distribution Width 18.7 % (9.3-17.3); White Blood Count 5.6 T/CUMM (4-12)
[2019-09-12 07:01] LABS: INR 0.9; PT Patient Result 9.8 SECS (9.6-12.2); Partial Thromboplastin Time 23.5 SECS (20.8-36.0)
[2019-09-12 07:05] LABS: Albumin 3.8 G/DL (3.4-5.0); Calcium 8.3 MG/DL (8.5-10.1); Osmolality,Calculated 285.1 MOS/KG (273-304); Total Protein 7.4 G/DL (6.4-8.3)
[2019-09-12 07:42] LABS: Apearance,Urine CLEAR (Clear); Bilirubin,Urine Negative (Negative); Blood, Urine Negative (Negative); Glucose,Urine (UA) Negative (Negative); Ketones,Urine Negative (Negative); Mucus,Urine Occasional /LPF (Occasional); Nitrite,Urine Negative (Negative); Protein,Urine Negative; RBC,Urine 1 /HPF (0-4); Squamous Epithelial Cell,Urine Occasional /HPF (0-10); Urine Color Straw (Yellow); Urine Specific Gravity 1.013 (1.001-1.035); Urine Urobilinogen < 2.0 EU/DL (0.2-1.0); WBC,Urine 1 /HPF (0-6)
[2019-09-12] MEDS ORDERED: metroNIDAZOLE INJ 500 MG in PREMIX 1 EACH IV STA (08:34)
[2019-09-12] MEDS ORDERED: PROMETHAZINE 25 MG/1 ML VIAL IM PRN (09:39)
[2019-09-12 10:17] LABS: Thyroid Stimulating Hormone 0.586 uIU/ml (0.358-3.74)
[2019-09-12 10:59] LABS: Hematocrit 33.7 VOL% (35.7-47.0); Hemoglobin 9.9 GM/DL (12.0-16.0)
[2019-09-12 16:28] LABS: Hematocrit 33.5 VOL% (35.7-47.0)
[2019-09-12] MEDS: SODIUM CHLORIDE 0.9% 1,000 ML IV SCH ×2 (18:29→22:40)
[2019-09-12] MEDS: CIPROFLOXACIN INJ 400 MG in PREMIX 1 EACH IV SCH (18:30)
[2019-09-12] MEDS ORDERED: BENZONATATE 100 MG CAPSULE PO PRN (20:24)
[2019-09-12] MEDS: PANTOPRAZOLE 40 MG VIAL IV SCH (21:41)
[2019-09-12] MEDS: SERTRALINE 50 MG TABLET PO SCH (21:42)
[2019-09-12 21:50] LABS: Hemoglobin 9.2 GM/DL (12.0-16.0)
[2019-09-12] MEDS: metroNIDAZOLE INJ 500 MG in PREMIX 1 EACH IV SCH (23:04)
[2019-09-13] MEDS: DICYCLOMINE 20 MG TABLET PO PRN ×2 (03:31→20:16)
[2019-09-13] MEDS: SODIUM CHLORIDE 0.9% 1,000 ML IV SCH ×4 (04:14→20:20)
[2019-09-13] MEDS: ONDANSETRON 4 MG/2 ML VIAL IV PRN ×2 (04:15→20:16)
[2019-09-13 04:46] LABS: Basophils % 0.9 % (0.0-0.8); Eosinophils # 0.1 10*3/uL (0.0-0.87); Eosinophils % 2.2 % (0.00-10.9); Hematocrit 31.4 VOL% (35.7-47.0); Hemoglobin 9.2 GM/DL (12.0-16.0); Immature Granulocytes % 0.2 %; Immature Granulocytes Absolute 0.01 #; Lymphocytes % 22.9 % (21.3-54.2); Mean Corpuscular HGB Conc 29.3 GM/DL (32-36); Mean Corpuscular Volume 84.2 FL (87-102); Mean Platelet Volume 10.5 FL (9.6-12.0); Monocytes % 7.9 % (1.7-12.7); Neutrophils % 65.9 % (38.7-73.9); Platelet Count 308 T/CUMM (130-400); Red Blood Count 3.73 MC/CUMM (3.8-5.5); Red Cell Distribution Width 19.2 % (9.3-17.3); White Blood Count 4.5 T/CUMM (4-12)
[2019-09-13 05:16] LABS: Calcium 7.9 MG/DL (8.5-10.1); Osmolality,Calculated 292.4 MOS/KG (273-304)
[2019-09-13] MEDS: CIPROFLOXACIN INJ 400 MG in PREMIX 1 EACH IV SCH ×2 (06:04→17:43)
[2019-09-13] MEDS: metroNIDAZOLE INJ 500 MG in PREMIX 1 EACH IV SCH ×3 (06:06→22:20)
[2019-09-13] MEDS: ARIPiprazole 5 MG TABLET PO SCH (09:16)
[2019-09-13] MEDS: SERTRALINE 50 MG TABLET PO SCH (09:16)
[2019-09-13] MEDS: PANTOPRAZOLE 40 MG VIAL IV SCH (09:17)
[2019-09-13] MEDS: POTASSIUM CHLORIDE RIDER 10 MEQ in PREMIX 1 EACH IV PRN ×4 (10:08→20:15)
[2019-09-13] MEDS: ACETAMINOPHEN 325 MG TABLET PO PRN ×2 (12:14→21:36)
[2019-09-13] MEDS: PANTOPRAZOLE 40 MG TABLET PO SCH (20:16)
[2019-09-13] MEDS ORDERED: QUEtiapine 25 MG TABLET PO SCH (21:00)
[2019-09-14] MEDS: ONDANSETRON 4 MG/2 ML VIAL IV PRN (05:50)
[2019-09-14] MEDS: ACETAMINOPHEN 325 MG TABLET PO PRN (05:53)
[2019-09-14] MEDS: CIPROFLOXACIN INJ 400 MG in PREMIX 1 EACH IV SCH (05:53)
[2019-09-14 06:28] LABS: Basophils % 0.7 % (0.0-0.8); Eosinophils # 0.1 10*3/uL (0.0-0.87); Hemoglobin 9.7 GM/DL (12.0-16.0); Immature Granulocytes % 0.4 %; Immature Granulocytes Absolute 0.01 #; Lymphocytes % 37.8 % (21.3-54.2); Mean Corpuscular HGB Conc 29.4 GM/DL (32-36); Mean Corpuscular Volume 85.9 FL (87-102); Mean Platelet Volume 10.3 FL (9.6-12.0); Monocytes % 10.5 % (1.7-12.7); Neutrophils % 47.6 % (38.7-73.9); Platelet Count 297 T/CUMM (130-400); Red Blood Count 3.84 MC/CUMM (3.8-5.5); Red Cell Distribution Width 19.3 % (9.3-17.3); White Blood Count 2.7 T/CUMM (4-12)
[2019-09-14 06:53] LABS: Calcium 8.4 MG/DL (8.5-10.1); Osmolality,Calculated 291.3 MOS/KG (273-304)
[2019-09-14 06:53] LABS: Hypochromasia 1+; Platelet Estimate Adequate
[2019-09-14 06:54] LABS: Ovalocytes Slight
[2019-09-14] MEDS: metroNIDAZOLE INJ 500 MG in PREMIX 1 EACH IV SCH ×2 (06:55→15:34)
[2019-09-14] MEDS: SODIUM CHLORIDE 0.9% 1,000 ML IV SCH (06:57)
[2019-09-14] MEDS ORDERED: SODIUM CHLORIDE 0.45% 1,000 ML IV SCH (07:30)
[2019-09-14] MEDS: ARIPiprazole 5 MG TABLET PO SCH (09:32)
[2019-09-14] MEDS: PANTOPRAZOLE 40 MG TABLET PO SCH (09:32)
[2019-09-14] MEDS ORDERED: ONDANSETRON 4 MG TABLET PO PRN (12:12)
[2019-09-14 12:31] VITALS: BP 119/84
[2019-09-14] MEDS: DICYCLOMINE 20 MG TABLET PO PRN (12:40)
[2019-09-14] MEDS ORDERED: SERTRALINE 50 MG TABLET PO SCH (21:00)
[2019-09-16 00:16] LABS: CDT Result Negative (Negative); CDT Specimen Source STOOL
== END 2019-09-14 15:52 | disposition home or self-care (01) | DRG 378 ==
LOC: N.ED 05:46 → N.EDINP 08:49 → N.5E 09:45
PROVIDERS: ADMIT Family Medicine; ATTEND Family Medicine

== ENCOUNTER 2022-02-06 17:02 | Observation (INO) ==
[2022-02-06] MEDS ORDERED: ACETAMINOPHEN 325 MG TABLET PO PRN (19:11)
[2022-02-06] MEDS ORDERED: ONDANSETRON ODT 4 MG TABLET PO STA (19:32)
[2022-02-06] MEDS: PIPERACILLIN/TAZOBACTAM 3,375 MG in SODIUM CHLORIDE 0.9% 100 ML IV SCH (20:16)
[2022-02-06] MEDS: SODIUM CHLORIDE 0.45% 1,000 ML IV SCH (20:16)
[2022-02-06 20:27] LABS: Basophils % 0.7 % (0.0-0.8); Eosinophils # 0.2 10*3/uL (0.0-0.87); Eosinophils % 3.8 % (0.00-10.9); Hematocrit 39.6 VOL% (35.7-47.0); Hemoglobin 12.4 GM/DL (12.0-16.0); Immature Granulocytes % 0.2 %; Immature Granulocytes Absolute 0.01 #; Lymphocytes # 1.9 10*3/uL (1.4-4.0); Lymphocytes % 44.1 % (21.3-54.2); Mean Corpuscular HGB Conc 31.3 GM/DL (32-36); Mean Corpuscular Volume 94.3 FL (87-102); Mean Platelet Volume 10.8 FL (9.6-12.0); Monocytes % 7.3 % (1.7-12.7); Neutrophils % 43.9 % (38.7-73.9); Platelet Count 269 T/CUMM (130-400); Red Cell Distribution Width 13.2 % (9.3-17.3); White Blood Count 4.2 T/CUMM (4-12)
[2022-02-06] MEDS ORDERED: CYCLOBENZAPRINE 10 MG TABLET PO STA (20:32)
[2022-02-06] MEDS ORDERED: HydrOXYzine PAMOATE 25 MG CAPSULE PO STA (20:32)
[2022-02-06 20:40] LABS: Alanine Aminotransferase 21 U/L (13-56); Alkaline Phosphatase 90 U/L (45-117); Aspartate Amino Transferase 22 U/L (0-37); Bilirubin,Total < 0.39 MG/DL (0.20-1.00); Blood Urea Nitrogen 14 MG/DL (7-18); Calcium 8.8 MG/DL (8.5-10.1); Carbon Dioxide 24 MMOL/L (21-32); Estimated Glom Filtration Rate 76 ML/MIN; Glucose 83 MG/DL (74-106); Osmolality,Calculated 280.3 MOS/KG (273-304); Potassium 3.5 MMOL/L (3.5-5.1); Sodium 141 MMOL/L (136-145); Total Protein 6.9 G/DL (6.4-8.2)
[2022-02-06] MEDS: levETIRAcetam 500 MG TABLET PO SCH (21:08)
[2022-02-06] MEDS: MORPHINE 2 MG/1 ML SYRINGE IV PRN (22:53)
[2022-02-06] MEDS: ONDANSETRON 4 MG/2 ML VIAL IV PRN (22:53)
[2022-02-07] MEDS: MORPHINE 2 MG/1 ML SYRINGE IV PRN ×2 (03:17→07:42)
[2022-02-07] MEDS: ONDANSETRON 4 MG/2 ML VIAL IV PRN ×2 (03:17→07:42)
[2022-02-07] MEDS: SODIUM CHLORIDE 0.45% 1,000 ML IV SCH ×3 (04:21→19:30)
[2022-02-07] MEDS: PIPERACILLIN/TAZOBACTAM 3,375 MG in SODIUM CHLORIDE 0.9% 100 ML IV SCH ×3 (04:22→20:30)
[2022-02-07] MEDS: levETIRAcetam 500 MG TABLET PO SCH ×2 (08:46→20:21)
[2022-02-07] MEDS: PANTOPRAZOLE 40 MG TABLET PO SCH (08:46)
[2022-02-07] MEDS: HydrOXYzine PAMOATE 25 MG CAPSULE PO SCH ×2 (15:17→20:21)
[2022-02-07] MEDS: CYCLOBENZAPRINE 10 MG TABLET PO SCH ×2 (15:17→20:21)
[2022-02-07] MEDS ORDERED: MORPHINE 2 MG/1 ML SYRINGE IV PRN (16:43)
[2022-02-07] MEDS ORDERED: TOPIRAMATE 100 MG TABLET PO SCH (21:00)
[2022-02-08] MEDS: SODIUM CHLORIDE 0.45% 1,000 ML IV SCH (04:18)
[2022-02-08] MEDS: PIPERACILLIN/TAZOBACTAM 3,375 MG in SODIUM CHLORIDE 0.9% 100 ML IV SCH (04:19)
[2022-02-08] MEDS: CYCLOBENZAPRINE 10 MG TABLET PO SCH (08:48)
[2022-02-08] MEDS: PANTOPRAZOLE 40 MG TABLET PO SCH (08:48)
[2022-02-08] MEDS: HydrOXYzine PAMOATE 25 MG CAPSULE PO SCH (08:49)
[2022-02-08] MEDS: levETIRAcetam 500 MG TABLET PO SCH (08:49)
[2022-02-08] MEDS ORDERED: SERTRALINE 50 MG TABLET PO SCH (09:00)
[2022-02-08 12:03] VITALS: BP 100/65
== END 2022-02-08 12:45 | disposition home or self-care (01) ==
LOC: N.ED 17:02 → N.EDINP 17:02 → N.5E 02-07 12:41
PROVIDERS: ADMIT Surgery; ATTEND Surgery